=== PATIENT | female | born 1955 | race Caucasian/White ===

== ENCOUNTER 2017-02-11 14:59 | Day surgery (SDC) | payer MEDICARE, OTHER ==
[2017-02-11] MEDS ORDERED: NIVOLUMAB IVPB SCH ×4 (15:30)
[2017-02-11] MEDS ORDERED: [UNRECOGNIZED DRUG - OTHER] IVPB SCH ×4 (15:30)
== END 2017-02-11 17:10 | disposition home or self-care (01) ==
LOC: ONC/OP 14:59
PROVIDERS: ATTEND Internal Medicine Medical Oncology
DX: Z51.11 Encounter for antineoplastic chemotherapy (principal); C34.11 Malignant neoplasm of upper lobe, right bronchus or lung; M19.90 Unspecified osteoarthritis, unspecified site; Z90.49 Acquired absence of other specified parts of digestive tract; Z90.710 Acquired absence of both cervix and uterus; Z88.8 Allergy status to other drugs, medicaments and biological substances; Z79.82 Long term (current) use of aspirin
CPT/HCPCS: 96413; J7050; J9299

== ENCOUNTER 2017-02-25 11:31 | Day surgery (SDC) | payer MEDICARE, OTHER ==
[2017-02-25] MEDS ORDERED: NIVOLUMAB IVPB SCH ×4 (11:45)
[2017-02-25] MEDS ORDERED: [UNRECOGNIZED DRUG - OTHER] IVPB SCH ×4 (11:45)
[2017-02-25 12:03] VITALS: BP 113/70; TEMP 98.1
[2017-02-25] MEDS ORDERED: Sodium Chloride 0.9% 20 ML ONE (14:21)
== END 2017-02-25 16:08 | disposition home or self-care (01) ==
LOC: ONC/OP 11:31
PROVIDERS: ATTEND Internal Medicine Medical Oncology
DX: Z51.11 Encounter for antineoplastic chemotherapy (principal); C34.11 Malignant neoplasm of upper lobe, right bronchus or lung; M19.90 Unspecified osteoarthritis, unspecified site; Z79.899 Other long term (current) drug therapy; Z79.52 Long term (current) use of systemic steroids; Z88.8 Allergy status to other drugs, medicaments and biological substances; Z95.828 Presence of other vascular implants and grafts; Z90.710 Acquired absence of both cervix and uterus; Z90.49 Acquired absence of other specified parts of digestive tract; Z90.722 Acquired absence of ovaries, bilateral; Z90.79 Acquired absence of other genital organ(s); Z98.890 Other specified postprocedural states; Z87.891 Personal history of nicotine dependence; Z92.3 Personal history of irradiation; Z87.42 Personal history of other diseases of the female genital tract
CPT/HCPCS: 96413; A4216; J7050; J9299

== ENCOUNTER 2017-03-11 10:58 | Day surgery (SDC) | payer MEDICARE, OTHER ==
[2017-03-11] MEDS ORDERED: Sodium Chloride 0.9% 20 ML ONE (11:16)
[2017-03-11] MEDS ORDERED: [UNRECOGNIZED DRUG - OTHER] IVPB SCH ×4 (11:30)
[2017-03-11] MEDS ORDERED: NIVOLUMAB IVPB SCH ×4 (11:30)
[2017-03-11 11:50] VITALS: BP 129/73; TEMP 98.4
== END 2017-03-11 15:04 | disposition home or self-care (01) ==
LOC: ONC/OP 10:58
PROVIDERS: ATTEND Internal Medicine Medical Oncology
DX: Z51.11 Encounter for antineoplastic chemotherapy (principal); C34.11 Malignant neoplasm of upper lobe, right bronchus or lung; M19.90 Unspecified osteoarthritis, unspecified site; Z79.52 Long term (current) use of systemic steroids; Z79.899 Other long term (current) drug therapy; Z88.8 Allergy status to other drugs, medicaments and biological substances; Z90.49 Acquired absence of other specified parts of digestive tract; Z90.710 Acquired absence of both cervix and uterus; Z98.890 Other specified postprocedural states; Z92.3 Personal history of irradiation; Z87.891 Personal history of nicotine dependence
CPT/HCPCS: 36415; 80053; 82248; 82378; 83615; 84100; 84436; 84443; 84550; 96413; A4216; J7050; J9299

== ENCOUNTER 2017-03-25 13:46 | Day surgery (SDC) | payer MEDICARE, OTHER ==
[2017-03-25] MEDS ORDERED: Nivolumab 200 MG, Nivolumab 40 MG, Admixture Fee 1 EACH in Sodium Chloride 0.9% 250 ML ... IVPB SCH (14:00)
[2017-03-25 14:47] VITALS: BP 128/71; TEMP 98.2
== END 2017-03-25 16:18 | disposition home or self-care (01) ==
LOC: ONC/OP 13:46
PROVIDERS: ATTEND Internal Medicine Medical Oncology
DX: Z51.11 Encounter for antineoplastic chemotherapy (principal); C34.11 Malignant neoplasm of upper lobe, right bronchus or lung; M19.90 Unspecified osteoarthritis, unspecified site; Z79.52 Long term (current) use of systemic steroids; Z79.899 Other long term (current) drug therapy; Z88.8 Allergy status to other drugs, medicaments and biological substances; Z90.49 Acquired absence of other specified parts of digestive tract; Z90.710 Acquired absence of both cervix and uterus; Z98.890 Other specified postprocedural states; Z87.891 Personal history of nicotine dependence; Z92.3 Personal history of irradiation
CPT/HCPCS: 96413; J7050; J9299

== ENCOUNTER → 2017-04-08 | Day surgery (SDC) | payer MEDICARE, OTHER ==
[~2017-04-08] MED LIST: Nivolumab 200 MG, Nivolumab 40 MG, Admixture Fee 1 EACH in Sodium Chloride 0.9% 250 ML ... IVPB SCH; Sodium Chloride 0.9% 20 ML ONE
[2017-04-08 11:45] VITALS: BP 122/69; TEMP 97.8
== END ==
LOC: ONC/OP 10:54
PROVIDERS: ATTEND Internal Medicine Medical Oncology
DX: Z51.11 Encounter for antineoplastic chemotherapy (principal); C34.11 Malignant neoplasm of upper lobe, right bronchus or lung; M19.90 Unspecified osteoarthritis, unspecified site; Z79.52 Long term (current) use of systemic steroids; Z79.899 Other long term (current) drug therapy; Z88.8 Allergy status to other drugs, medicaments and biological substances; Z90.49 Acquired absence of other specified parts of digestive tract; Z90.710 Acquired absence of both cervix and uterus; Z98.890 Other specified postprocedural states; Z87.891 Personal history of nicotine dependence; Z92.3 Personal history of irradiation
CPT/HCPCS: 96413; A4216; J7050; J9299

== ENCOUNTER 2017-04-15 09:03 | Outpatient (CLI) | payer MEDICARE, OTHER ==
[2017-04-15] MEDS ORDERED: Gadobenate Dimeglumine 529 MG/1 ML (20ML VIAL) ONE (09:44)
--- NOTE | 2017-04-15 10:26 | MRI ---
PRE AND POST CONTRAST ENHANCED MRI BRAIN: Date: 04-15-17 Comparison: 12-18-16 FINDINGS: Images demonstrate an interval left parietal craniotomy. There has been surgical resection of the lef t parietal lesion. Some post-surgical encephalomalacic changes seen in the left parietal region. Ther e is decreased vasogenic edema surrounding the enhancing intraaxial mass. Some residual enhancement i s seen. This may represent residual tumor versus post-surgical changes. Correlate with surgical rajan ns. No other newly developed masses or lesions seen. IMPRESSION: Post-surgical changes in the left parietal cortex with residual enhancement along the margins of the cervical bed. Residual malignancy in this region cannot be excluded. POS: [facility]
== END 2017-04-15 09:04 | disposition home or self-care (01) ==
LOC: MRI 09:03
PROVIDERS: ATTEND Radiology Radiation Oncology
DX: C79.31 Secondary malignant neoplasm of brain (principal); Z98.890 Other specified postprocedural states
CPT/HCPCS: 70553; A9579

== ENCOUNTER 2017-04-22 12:00 | Day surgery (SDC) | payer MEDICARE, OTHER ==
[2017-04-22] MEDS ORDERED: NIVOLUMAB IVPB SCH (12:15)
[2017-04-22] MEDS ORDERED: SODIUM CHLORIDE 0.9% IVPB SCH (12:15)
[2017-04-22] MEDS ORDERED: Sodium Chloride 0.9% 20 ML ONE (12:17)
[2017-04-22 12:58] VITALS: BP 119/69; TEMP 97.5
--- NOTE | 2017-04-22 13:26 | RAD ---
PA AND LATERAL CHEST: Indication: History of malignant neoplasm of the lung with nausea and vomiting. Comparison: 05-17-15 FINDINGS: The cavitary changes of the right upper lobe with surrounding area of density is similar appearing. T he shifting of the mediastinum and trachea to the right from midline is stable. Scarring within the r ight lower lobe is similar. Left lung remains clear. Osseous structures appear unchanged. IMPRESSION: 1. Persistent chronic lung changes with cavitation and bronchiectasis involving the right upper lobe. 2. Stable scarring within the right lower lobe. No appreciable interval change is demonstrated. POS: [facility]
== END 2017-04-22 16:28 | disposition home or self-care (01) ==
LOC: ONC/OP 12:00
PROVIDERS: ATTEND Internal Medicine Medical Oncology
DX: Z51.11 Encounter for antineoplastic chemotherapy (principal); C34.11 Malignant neoplasm of upper lobe, right bronchus or lung; M19.90 Unspecified osteoarthritis, unspecified site; Z88.8 Allergy status to other drugs, medicaments and biological substances; Z90.49 Acquired absence of other specified parts of digestive tract; Z90.710 Acquired absence of both cervix and uterus; Z98.890 Other specified postprocedural states; Z87.891 Personal history of nicotine dependence
CPT/HCPCS: 71020; 96413; A4216; J1642; J7050; J9299

== ENCOUNTER 2017-05-06 11:00 | Day surgery (SDC) | payer MEDICARE, OTHER ==
[2017-05-06] MEDS ORDERED: Sodium Chloride 0.9% 20 ML ONE (11:19)
[2017-05-06] MEDS ORDERED: NIVOLUMAB IVPB SCH (11:45)
[2017-05-06] MEDS ORDERED: SODIUM CHLORIDE 0.9% IVPB SCH (11:45)
[2017-05-06 12:52] VITALS: BP 126/67; TEMP 98.3
== END 2017-05-06 14:17 | disposition home or self-care (01) ==
LOC: ONC/OP 11:00
PROVIDERS: ATTEND Internal Medicine Medical Oncology
DX: Z51.11 Encounter for antineoplastic chemotherapy (principal); C34.11 Malignant neoplasm of upper lobe, right bronchus or lung; M19.90 Unspecified osteoarthritis, unspecified site; Z92.3 Personal history of irradiation; Z87.891 Personal history of nicotine dependence; Z79.899 Other long term (current) drug therapy; Z88.8 Allergy status to other drugs, medicaments and biological substances; Z90.49 Acquired absence of other specified parts of digestive tract; Z90.710 Acquired absence of both cervix and uterus; Z98.890 Other specified postprocedural states
CPT/HCPCS: 96413; A4216; J7050; J9299

== ENCOUNTER 2017-05-20 11:22 | Day surgery (SDC) | payer MEDICARE, OTHER ==
[2017-05-20] MEDS ORDERED: Sodium Chloride 0.9% 20 ML ONE (11:38)
[2017-05-20] MEDS ORDERED: NIVOLUMAB IVPB SCH (11:45)
[2017-05-20] MEDS ORDERED: SODIUM CHLORIDE 0.9% IVPB SCH (11:45)
[2017-05-20 11:52] VITALS: BP 120/62; TEMP 98.4
== END 2017-05-20 13:40 | disposition home or self-care (01) ==
LOC: ONC/OP 11:22
PROVIDERS: ATTEND Internal Medicine Medical Oncology
DX: Z51.11 Encounter for antineoplastic chemotherapy (principal); C34.11 Malignant neoplasm of upper lobe, right bronchus or lung; M19.90 Unspecified osteoarthritis, unspecified site; Z88.8 Allergy status to other drugs, medicaments and biological substances; Z79.52 Long term (current) use of systemic steroids; Z79.899 Other long term (current) drug therapy; Z90.49 Acquired absence of other specified parts of digestive tract; Z98.890 Other specified postprocedural states; Z87.891 Personal history of nicotine dependence; Z92.3 Personal history of irradiation
CPT/HCPCS: 96413; A4216; J7050; J9299

== ENCOUNTER 2017-06-03 11:10 | Day surgery (SDC) | payer MEDICARE, OTHER ==
[2017-06-03] MEDS ORDERED: NIVOLUMAB IVPB SCH (11:30)
[2017-06-03] MEDS ORDERED: SODIUM CHLORIDE 0.9% IVPB SCH (11:30)
== END 2017-06-03 14:06 | disposition home or self-care (01) ==
LOC: ONC/OP 11:10
PROVIDERS: ATTEND Internal Medicine Medical Oncology
DX: Z51.11 Encounter for antineoplastic chemotherapy (principal); C34.11 Malignant neoplasm of upper lobe, right bronchus or lung; R11.2 Nausea with vomiting, unspecified; M19.90 Unspecified osteoarthritis, unspecified site; Z87.891 Personal history of nicotine dependence; Z79.899 Other long term (current) drug therapy; Z80.3 Family history of malignant neoplasm of breast; Z88.8 Allergy status to other drugs, medicaments and biological substances; Z90.49 Acquired absence of other specified parts of digestive tract; Z90.711 Acquired absence of uterus with remaining cervical stump; Z98.890 Other specified postprocedural states
CPT/HCPCS: 96413; J7050; J9299

== ENCOUNTER 2017-06-17 11:56 | Day surgery (SDC) | payer MEDICARE, OTHER ==
[2017-06-17] MEDS ORDERED: Nivolumab 200 MG, Nivolumab 40 MG, Admixture Fee 1 EACH in Sodium Chloride 0.9% 250 ML ... IVPB SCH (12:30)
[2017-06-17] MEDS ORDERED: Sodium Chloride 0.9% 20 ML ONE (12:34)
[2017-06-17 13:27] LABS: Bilirubin Negative (Negative); Blood, Urine Negative (Negative); Clarity CLEAR (Clear); Glucose, Urine (Dipstick) Negative (Negative); Leukocyte Trace (Negative); Nitrite Negative (Negative); Protein, Urine (Dipstick) Negative (Neg-Trace); Specific Gravity, Urine 1.009 (1.002-1.036); Urobilinogen 0.2 mg/dL (0.2-1.0)
[2017-06-17 13:29] LABS: Bacteria/HPF None Seen HPF (None Seen); Hyaline Casts/LPF 0-3 HYALINE CAST LPF (0-3 Hyaline); Pathc Cast-AUWi Flag 0.27 (0-2.49); RBC/HPF 0-3 HPF (0-3); Squamous Epithelial 0-3 HPF (0-3); WBC/HPF 0-3 HPF (0-3)
[2017-06-17 15:52] VITALS: BP 133/76; TEMP 98.4
== END 2017-06-17 16:09 | disposition home or self-care (01) ==
LOC: ONC/OP 11:56
PROVIDERS: ATTEND Internal Medicine Medical Oncology
DX: Z51.11 Encounter for antineoplastic chemotherapy (principal); C34.11 Malignant neoplasm of upper lobe, right bronchus or lung; M19.90 Unspecified osteoarthritis, unspecified site; Z88.8 Allergy status to other drugs, medicaments and biological substances
CPT/HCPCS: 81001; 87086; 96413; 99211; A4216; G0463; J7050; J9299

== ENCOUNTER 2017-07-01 11:36 | Day surgery (SDC) | payer MEDICARE, OTHER ==
[2017-07-01] MEDS ORDERED: Sodium Chloride 0.9% 20 ML ONE (11:45)
[2017-07-01] MEDS ORDERED: Nivolumab 200 MG, Nivolumab 40 MG, Admixture Fee 1 EACH in Sodium Chloride 0.9% 250 ML ... IVPB SCH (12:00)
== END 2017-07-01 14:34 | disposition home or self-care (01) ==
LOC: ONC/OP 11:36
PROVIDERS: ATTEND Internal Medicine Medical Oncology
DX: Z51.11 Encounter for antineoplastic chemotherapy (principal); C34.11 Malignant neoplasm of upper lobe, right bronchus or lung; M19.90 Unspecified osteoarthritis, unspecified site; Z79.52 Long term (current) use of systemic steroids; Z79.899 Other long term (current) drug therapy; Z88.8 Allergy status to other drugs, medicaments and biological substances; Z92.3 Personal history of irradiation; Z90.49 Acquired absence of other specified parts of digestive tract; Z90.710 Acquired absence of both cervix and uterus; Z98.890 Other specified postprocedural states; Z87.891 Personal history of nicotine dependence
CPT/HCPCS: 96413; A4216; J7050; J9299

== ENCOUNTER 2017-07-15 13:31 | Day surgery (SDC) | payer MEDICARE ==
[2017-07-15] MEDS ORDERED: Sodium Chloride 0.9% 20 ML ONE (13:40)
[2017-07-15] MEDS ORDERED: SODIUM CHLORIDE IVPB SCH (13:45)
[2017-07-15] MEDS ORDERED: NIVOLUMAB IVPB SCH (13:45)
[2017-07-15] MEDS ORDERED: ADMIXTURE FEE IVPB SCH (13:45)
[2017-07-15 14:01] VITALS: BP 114/64; TEMP 98.2
== END 2017-07-15 15:55 | disposition home or self-care (01) ==
LOC: ONC/OP 13:31
PROVIDERS: ATTEND Internal Medicine Medical Oncology
DX: Z51.11 Encounter for antineoplastic chemotherapy (principal); C34.11 Malignant neoplasm of upper lobe, right bronchus or lung; M19.90 Unspecified osteoarthritis, unspecified site; Z92.21 Personal history of antineoplastic chemotherapy; Z92.3 Personal history of irradiation; Z87.891 Personal history of nicotine dependence; Z79.899 Other long term (current) drug therapy; Z88.8 Allergy status to other drugs, medicaments and biological substances
CPT/HCPCS: 96413; A4216; C9299; J7050

== ENCOUNTER 2017-07-22 13:15 | Outpatient (CLI) | payer MEDICARE, OTHER ==
--- NOTE | 2017-07-22 15:04 | MRI ---
PRE AND POSTCONTRAST ENHANCED MRI OF BRAIN: Date: 07/22/17 COMPARISON: Previous pre and postcontrast enhanced MRI from 04/15/17. TECHNIQUE: Multiplanar, multisequence pre and postcontrast enhanced MRI of brain obtained. FINDINGS: Images demonstrate a left parietal craniotomy site again seen. Postsurgical changes seen in the left parietal lobe. There is an approximately 2.3 x 1.3 x 2.3 cm area of left parietal parenchymal enhancement. The exten t of parenchymal enhancement appears to be slightly more pronounced than on the previous comparison e xam, where previously there was more of a cystic component and less of a solid area of parenchymal en hancement. This may represent postsurgical changes versus increasing brain parenchymal neoplasm. As m entioned above, the cystic component has decreased, while the solid enhancing component has increased in this area. The area of enhancement extends all the way to the ependymal surface of the left later al ventricle posteriorly. The rest of the brain demonstrates no obvious evidence of masses or lesions. No evidence of hydroceph alus seen. IMPRESSION: Postsurgical changes versus increasing tumor enhancement in the left parietal region. Findings discussed with Dr. Reyes's nurse, Marce, at 1418 hours on 07/22/17. CODE CR. POS: [facility]
[2017-07-22] MEDS ORDERED: Gadobenate Dimeglumine 529 MG/1 ML (20ML VIAL) ONE (16:37)
== END 2017-07-22 13:16 | disposition home or self-care (01) ==
LOC: MRI 13:15
PROVIDERS: ATTEND Radiology Radiation Oncology
DX: C79.31 Secondary malignant neoplasm of brain (principal); C34.90 Malignant neoplasm of unspecified part of unspecified bronchus or lung
CPT/HCPCS: 70553; A9579

== ENCOUNTER 2017-07-29 11:16 | Day surgery (SDC) | payer MEDICARE, OTHER ==
[2017-07-29] MEDS ORDERED: NIVOLUMAB IVPB SCH (11:30)
[2017-07-29] MEDS ORDERED: SODIUM CHLORIDE IVPB SCH (11:30)
[2017-07-29] MEDS ORDERED: ADMIXTURE FEE IVPB SCH (11:30)
[2017-07-29 11:38] VITALS: BP 128/67; TEMP 98.5
[2017-07-29] MEDS ORDERED: Sodium Chloride 0.9% 30 ML ONE (11:39)
--- NOTE | 2017-07-29 13:28 | RAD ---
CHEST TWO VIEWS: HISTORY: Cough. Lung cancer. COMPARISON: 05/12/2017 CORRELATION: 01/08/2017 FINDINGS: Chronic changes in the right hemithorax with decreased right lung volume. Stable aeration and cavita tion in the right upper lobe. Stable retraction of the cardiomediastinal silhouette in a rightward d irection. Stable hyperinflation of the left lung. There is no pneumothorax. IMPRESSION: Stable postsurgical/posttreatment changes. No acute cardiopulmonary process. POS: [facility]
== END 2017-07-29 14:12 | disposition home or self-care (01) ==
LOC: ONC/OP 11:16
PROVIDERS: ATTEND Internal Medicine Medical Oncology
DX: Z51.11 Encounter for antineoplastic chemotherapy (principal); C34.11 Malignant neoplasm of upper lobe, right bronchus or lung; C78.01 Secondary malignant neoplasm of right lung; M19.90 Unspecified osteoarthritis, unspecified site; Z92.3 Personal history of irradiation; Z87.891 Personal history of nicotine dependence; Z79.899 Other long term (current) drug therapy; Z88.8 Allergy status to other drugs, medicaments and biological substances
CPT/HCPCS: 71046; 96413; A4216; J7050; J9299

== ENCOUNTER 2017-08-12 14:36 | Day surgery (SDC) | payer MEDICARE, OTHER ==
[2017-08-12] MEDS ORDERED: Sodium Chloride 0.9% 20 ML ONE (14:43)
[2017-08-12] MEDS ORDERED: SODIUM CHLORIDE IVPB SCH (14:45)
[2017-08-12] MEDS ORDERED: NIVOLUMAB IVPB SCH (14:45)
[2017-08-12] MEDS ORDERED: ADMIXTURE FEE IVPB SCH (14:45)
[2017-08-12 15:02] VITALS: BP 113/73; TEMP 98.5
== END 2017-08-12 16:13 | disposition home or self-care (01) ==
LOC: ONC/OP 14:36
PROVIDERS: ATTEND Internal Medicine Medical Oncology
DX: Z51.11 Encounter for antineoplastic chemotherapy (principal); C34.11 Malignant neoplasm of upper lobe, right bronchus or lung; M19.90 Unspecified osteoarthritis, unspecified site; Z79.52 Long term (current) use of systemic steroids; Z79.899 Other long term (current) drug therapy; Z88.8 Allergy status to other drugs, medicaments and biological substances; Z92.3 Personal history of irradiation; Z87.891 Personal history of nicotine dependence
CPT/HCPCS: 80053; 82248; 83615; 84100; 84443; 84550; 96413; A4216; J7050; J9299

== ENCOUNTER 2017-08-26 13:45 | Day surgery (SDC) | payer MEDICARE, OTHER ==
[2017-08-26] MEDS ORDERED: SODIUM CHLORIDE IVPB SCH (14:15)
[2017-08-26] MEDS ORDERED: NIVOLUMAB IVPB SCH (14:15)
[2017-08-26] MEDS ORDERED: ADMIXTURE FEE IVPB SCH (14:15)
== END 2017-08-26 16:32 | disposition home or self-care (01) ==
LOC: ONC/OP 13:45
PROVIDERS: ATTEND Internal Medicine Medical Oncology
DX: Z51.11 Encounter for antineoplastic chemotherapy (principal); C34.11 Malignant neoplasm of upper lobe, right bronchus or lung; M19.90 Unspecified osteoarthritis, unspecified site; Z79.52 Long term (current) use of systemic steroids; Z79.899 Other long term (current) drug therapy; Z88.8 Allergy status to other drugs, medicaments and biological substances; Z92.3 Personal history of irradiation; Z87.891 Personal history of nicotine dependence
CPT/HCPCS: 96413; J7050; J9299

== ENCOUNTER 2017-09-09 13:56 | Day surgery (SDC) | payer MEDICARE, OTHER ==
[2017-09-09] MEDS ORDERED: Sodium Chloride 0.9% 40 ML ONE (14:12)
[2017-09-09] MEDS ORDERED: ADMIXTURE FEE IVPB SCH (14:15)
[2017-09-09] MEDS ORDERED: SODIUM CHLORIDE IVPB SCH (14:15)
[2017-09-09] MEDS ORDERED: NIVOLUMAB IVPB SCH (14:15)
[2017-09-09 15:11] VITALS: BP 121/67; TEMP 98.2
== END 2017-09-09 16:27 | disposition home or self-care (01) ==
LOC: ONC/OP 13:56
PROVIDERS: ATTEND Internal Medicine Medical Oncology
DX: Z51.11 Encounter for antineoplastic chemotherapy (principal); C34.11 Malignant neoplasm of upper lobe, right bronchus or lung; M19.90 Unspecified osteoarthritis, unspecified site; Z79.52 Long term (current) use of systemic steroids; Z79.899 Other long term (current) drug therapy; Z88.8 Allergy status to other drugs, medicaments and biological substances; Z92.3 Personal history of irradiation; Z87.891 Personal history of nicotine dependence
CPT/HCPCS: 96413; A4216; J7050; J9299

== ENCOUNTER 2017-09-23 13:51 | Day surgery (SDC) | payer MEDICARE, OTHER ==
[2017-09-23] MEDS ORDERED: ADMIXTURE FEE IVPB SCH (14:15)
[2017-09-23] MEDS ORDERED: NIVOLUMAB IVPB SCH (14:15)
[2017-09-23] MEDS ORDERED: SODIUM CHLORIDE IVPB SCH (14:15)
--- NOTE | 2017-09-23 15:27 | RAD ---
TWO VIEW CHEST: History: Lung cancer. Shortness of breath. Comparison: 07-29-17, CT 01-08-17 FINDINGS: Post-operative changes of the right upper chest again noted with pleural thickening and resulting ple ural cavities which have been noted previously. The right upper lobe opacification and scarring appea rs stable. The scarring produces shift of the midline structures to the right and this is a stable fi nding. Left lung is clear and hyperexpanded and stable. Osseous structures unremarkable. IMPRESSION: Stable chest findings. POS: [facility]
== END 2017-09-23 16:22 | disposition home or self-care (01) ==
LOC: ONC/OP 13:51
PROVIDERS: ATTEND Internal Medicine Medical Oncology
DX: Z51.11 Encounter for antineoplastic chemotherapy (principal); C34.11 Malignant neoplasm of upper lobe, right bronchus or lung; R11.2 Nausea with vomiting, unspecified; Z79.899 Other long term (current) drug therapy
CPT/HCPCS: 71046; 80053; 82248; 83615; 84100; 84550; 96413; 99211; G0463; J7050; J9299

== ENCOUNTER 2017-10-07 14:11 | Day surgery (SDC) | payer MEDICARE ==
[2017-10-07] MEDS ORDERED: Sodium Chloride 0.9% 20 ML ONE (14:22)
[2017-10-07] MEDS ORDERED: Nivolumab 240 MG in Sodium Chloride 0.9% 250 ML 250 ML IVPB SCH (14:30)
[2017-10-07 15:35] VITALS: BP 145/74; TEMP 98.3
== END 2017-10-07 16:45 | disposition home or self-care (01) ==
LOC: ONC/OP 14:11
PROVIDERS: ATTEND Internal Medicine Medical Oncology
DX: Z51.11 Encounter for antineoplastic chemotherapy (principal); C34.11 Malignant neoplasm of upper lobe, right bronchus or lung; M19.90 Unspecified osteoarthritis, unspecified site; R11.2 Nausea with vomiting, unspecified; Z87.891 Personal history of nicotine dependence; Z79.82 Long term (current) use of aspirin; Z79.899 Other long term (current) drug therapy; Z85.841 Personal history of malignant neoplasm of brain
CPT/HCPCS: 36415; 84436; 84443; 96413; A4216; J7050; J9299

== ENCOUNTER 2017-10-20 09:40 | Outpatient (CLI) | payer MEDICARE ==
[2017-10-20] MEDS ORDERED: Gadobenate Dimeglumine 529 MG/1 ML (20ML VIAL) ONE (11:28)
--- NOTE | 2017-10-20 12:42 | MRI ---
BRAIN MRI WITH AND WITHOUT CONTRAST: Date: 10-20-17 Comparison: 07-22-17 History: Lung cancer. History of intracranial metastatic disease status post radiation and surgery. Technique: Multiplanar, multisequence MRI images were obtained of the brain with and without contrast . FINDINGS: The diffuse weighted imaging demonstrates no evidence for acute infarction. There is evidence of prior craniotomy in the posterior left frontoparietal region. The gradient echo imaging demonstrates a subtle area of mild blooming artifact along the superomedial margin of the pos t-operative cavity in this region, suggesting minimal residual blood products. No additional abnormality noted on the gradient echo imaging. There is no midline shift or mass effect. There is encephalomalacia in the area of prior surgery on the left with associated enlargement of the posterior horn of the left lateral ventricle, stable. There is adjacent increased T2 and FLAIR signa l within the deep and subcortical white matter extending into the periventricular white matter in thi s region, which appears unchanged when compared to the 07-22-17 examination. There is mucosal thickening involving the posterior ethmoid air cells on the left. On the post contrast imaging there is an area of rim enhancement along the superomedial margin of the post-operative cavity, which is the area of blooming artifact on gradient echo imaging which suggest ed residual hemorrhage/blood products. This area of rim enhancement measures 9 mm in transverse dimen adalberto and 12 mm in AP dimension, which has decreased from 10 x 13 mm on the 07-22-17 exam. Just above t his, there is an ill-defined area of enhancement within the subcortical white matter which measures u p to 1 cm in transverse dimension. This area has decreased significantly when compared to the prior e xam at which time it measures 2.3 x 1.2 cm. On prior coronal imaging, the area of enhancement along t he medial margin of the post-operative cavity measured 2.3 cm, now measuring 1.6 cm. When compared to the 04-15-17 MRI the area of rim enhancement associated with residual blood products and the enhancem ent superior to this is increased but it is certainly improved since 07-22-17. The post contrast imaging does not demonstrate additional areas of abnormal enhancement within the br ain parenchyma. Arterial flow at the axial level of the skull base appear grossly unremarkable on the T2 weighted ruel ging. IMPRESSION: 1. Post-operative changes in the left posterior frontoparietal region as described above. There is en hancement along the medial and anterior/superior margin of this post-operative cavity. This enhanceme nt has increased since 04-15-17 but has improved when compared to 07-22-17. Exact etiology is uncertain . This suggests improving residual tumor or improving radiation necrosis, depending upon patient's pr ior treatment history, specifically any potential treatment since the 07-22-17 examination. Continued follow up is advised. POS: [facility]
== END 2017-10-20 09:41 | disposition home or self-care (01) ==
LOC: MRI 09:40
PROVIDERS: ATTEND Radiology Radiation Oncology
DX: C79.31 Secondary malignant neoplasm of brain (principal); C34.90 Malignant neoplasm of unspecified part of unspecified bronchus or lung; Z92.3 Personal history of irradiation; Z98.890 Other specified postprocedural states
CPT/HCPCS: 70553; A9579

== ENCOUNTER 2017-10-21 14:23 | Day surgery (SDC) | payer MEDICARE ==
[2017-10-21] MEDS ORDERED: Sodium Chloride 0.9% 20 ML ONE (14:42)
[2017-10-21] MEDS ORDERED: Nivolumab 240 MG in Sodium Chloride 0.9% 250 ML 250 ML IVPB SCH (14:45)
== END 2017-10-21 17:33 | disposition home or self-care (01) ==
LOC: ONC/OP 14:23
PROVIDERS: ATTEND Internal Medicine Medical Oncology
DX: Z51.11 Encounter for antineoplastic chemotherapy (principal); C34.11 Malignant neoplasm of upper lobe, right bronchus or lung; R11.2 Nausea with vomiting, unspecified; M19.90 Unspecified osteoarthritis, unspecified site; Z87.891 Personal history of nicotine dependence
CPT/HCPCS: 96413; A4216; J7050; J9299

== ENCOUNTER 2017-11-04 12:41 | Day surgery (SDC) | payer MEDICARE ==
[2017-11-04] MEDS ORDERED: Sodium Chloride 0.9% 30 ML ONE (12:57)
[2017-11-04] MEDS ORDERED: Nivolumab 240 MG in Sodium Chloride 0.9% 250 ML 250 ML IVPB SCH (13:00)
[2017-11-04 14:18] VITALS: BP 145/69; TEMP 97.8
== END 2017-11-04 15:04 | disposition home or self-care (01) ==
LOC: ONC/OP 12:41
PROVIDERS: ATTEND Internal Medicine Medical Oncology
DX: Z51.11 Encounter for antineoplastic chemotherapy (principal); C34.11 Malignant neoplasm of upper lobe, right bronchus or lung; R11.2 Nausea with vomiting, unspecified; M19.90 Unspecified osteoarthritis, unspecified site; Z87.891 Personal history of nicotine dependence; Z88.8 Allergy status to other drugs, medicaments and biological substances; Z79.82 Long term (current) use of aspirin; Z79.899 Other long term (current) drug therapy
CPT/HCPCS: 96413; A4216; J7050; J9299

== ENCOUNTER 2017-11-18 10:38 | Day surgery (SDC) | payer MEDICARE ==
[2017-11-18] MEDS ORDERED: Nivolumab 240 MG in Sodium Chloride 0.9% 250 ML 250 ML IVPB SCH (11:00)
[2017-11-18 12:02] VITALS: BP 137/68; TEMP 98.3
== END 2017-11-18 13:36 | disposition home or self-care (01) ==
LOC: ONC/OP 10:38
PROVIDERS: ATTEND Internal Medicine Medical Oncology
DX: Z51.11 Encounter for antineoplastic chemotherapy (principal); C34.11 Malignant neoplasm of upper lobe, right bronchus or lung; R11.2 Nausea with vomiting, unspecified; M19.90 Unspecified osteoarthritis, unspecified site; Z87.891 Personal history of nicotine dependence; Z88.8 Allergy status to other drugs, medicaments and biological substances; Z79.82 Long term (current) use of aspirin; Z79.899 Other long term (current) drug therapy
CPT/HCPCS: 96413; J7050; J9299

== ENCOUNTER 2017-12-02 14:17 | Day surgery (SDC) | payer MEDICARE ==
[2017-12-02] MEDS ORDERED: Nivolumab 240 MG in Sodium Chloride 0.9% 250 ML 250 ML IVPB SCH (14:30)
[2017-12-02 17:42] VITALS: BP 158/76; TEMP 98
== END 2017-12-02 16:45 | disposition home or self-care (01) ==
LOC: ONC/OP 14:17
PROVIDERS: ATTEND Internal Medicine Medical Oncology
DX: Z51.11 Encounter for antineoplastic chemotherapy (principal); C34.11 Malignant neoplasm of upper lobe, right bronchus or lung; C79.31 Secondary malignant neoplasm of brain; M19.90 Unspecified osteoarthritis, unspecified site; R11.2 Nausea with vomiting, unspecified; R06.02 Shortness of breath; Z88.8 Allergy status to other drugs, medicaments and biological substances; Z87.891 Personal history of nicotine dependence; Z79.82 Long term (current) use of aspirin; Z79.899 Other long term (current) drug therapy
CPT/HCPCS: 36415; 82378; 96413; J7050; J9299

== ENCOUNTER 2017-12-16 09:29 | Day surgery (SDC) | payer MEDICARE ==
[2017-12-16] MEDS ORDERED: Nivolumab 240 MG in Sodium Chloride 0.9% 250 ML 250 ML IVPB SCH (09:45)
[2017-12-16] MEDS ORDERED: Sodium Chloride 0.9% 20 ML ONE (09:48)
[2017-12-16 09:55] VITALS: BP 121/72; TEMP 98.4
== END 2017-12-16 12:10 | disposition home or self-care (01) ==
LOC: ONC/OP 09:29
PROVIDERS: ATTEND Internal Medicine Medical Oncology
DX: Z51.11 Encounter for antineoplastic chemotherapy (principal); C34.11 Malignant neoplasm of upper lobe, right bronchus or lung; C79.31 Secondary malignant neoplasm of brain; M19.90 Unspecified osteoarthritis, unspecified site; R11.2 Nausea with vomiting, unspecified; Z87.891 Personal history of nicotine dependence; Z88.8 Allergy status to other drugs, medicaments and biological substances; Z90.710 Acquired absence of both cervix and uterus; Z79.82 Long term (current) use of aspirin; Z79.899 Other long term (current) drug therapy
CPT/HCPCS: 96413; J7050; J9299

== ENCOUNTER 2017-12-30 13:46 | Day surgery (SDC) | payer MEDICARE ==
[2017-12-30] MEDS ORDERED: Nivolumab 240 MG in Sodium Chloride 0.9% 250 ML 250 ML IVPB SCH (14:00)
== END 2017-12-30 16:05 | disposition home or self-care (01) ==
LOC: ONC/OP 13:46
PROVIDERS: ATTEND Internal Medicine Medical Oncology
DX: Z51.11 Encounter for antineoplastic chemotherapy (principal); C34.11 Malignant neoplasm of upper lobe, right bronchus or lung; R11.2 Nausea with vomiting, unspecified; Z88.8 Allergy status to other drugs, medicaments and biological substances; Z87.891 Personal history of nicotine dependence; Z79.899 Other long term (current) drug therapy
CPT/HCPCS: 36415; 84436; 84443; 96413; J7050; J9299

== ENCOUNTER 2018-01-13 14:11 | Day surgery (SDC) | payer MEDICARE ==
[2018-01-13] MEDS ORDERED: Sodium Chloride 0.9% 20 ML ONE (14:17)
[2018-01-13] MEDS ORDERED: Nivolumab 240 MG in Sodium Chloride 0.9% 250 ML 250 ML IVPB SCH (14:30)
== END 2018-01-13 16:04 | disposition home or self-care (01) ==
LOC: ONC/OP 14:11
PROVIDERS: ATTEND Internal Medicine Medical Oncology
DX: Z51.11 Encounter for antineoplastic chemotherapy (principal); C34.11 Malignant neoplasm of upper lobe, right bronchus or lung; Z87.891 Personal history of nicotine dependence; Z79.02 Long term (current) use of antithrombotics/antiplatelets; Z79.899 Other long term (current) drug therapy
CPT/HCPCS: 96413; A4216; J7050; J9299

== ENCOUNTER 2018-01-27 14:07 | Day surgery (SDC) | payer MEDICARE ==
[2018-01-27] MEDS ORDERED: Sodium Chloride 0.9% 20 ML ONE (14:23)
[2018-01-27] MEDS ORDERED: Nivolumab 240 MG in Sodium Chloride 0.9% 250 ML 250 ML IVPB SCH (14:30)
[2018-01-27 16:26] VITALS: BP 128/64; TEMP 98.2
== END 2018-01-27 16:27 | disposition home or self-care (01) ==
LOC: ONC/OP 14:07
PROVIDERS: ATTEND Internal Medicine Medical Oncology
DX: Z51.11 Encounter for antineoplastic chemotherapy (principal); C34.11 Malignant neoplasm of upper lobe, right bronchus or lung; Z88.8 Allergy status to other drugs, medicaments and biological substances; Z87.891 Personal history of nicotine dependence; Z79.82 Long term (current) use of aspirin; Z79.899 Other long term (current) drug therapy
CPT/HCPCS: 36415; 80053; 82248; 82378; 82728; 83615; 84100; 84550; 96413; A4216; J7050; J9299

== ENCOUNTER 2018-02-10 14:07 | Day surgery (SDC) | payer MEDICARE ==
[2018-02-10 14:25] VITALS: BP 119/62; TEMP 98.1
[2018-02-10] MEDS ORDERED: Nivolumab 240 MG in Sodium Chloride 0.9% 250 ML 250 ML IVPB SCH (15:00)
== END 2018-02-10 16:32 | disposition home or self-care (01) ==
LOC: ONC/OP 14:07
PROVIDERS: ATTEND Internal Medicine Medical Oncology
DX: Z51.11 Encounter for antineoplastic chemotherapy (principal); C34.11 Malignant neoplasm of upper lobe, right bronchus or lung; Z87.891 Personal history of nicotine dependence; Z88.8 Allergy status to other drugs, medicaments and biological substances; Z79.899 Other long term (current) drug therapy
CPT/HCPCS: 96413; J7050; J9299

== ENCOUNTER 2018-02-24 09:37 | Outpatient (CLI) | payer MEDICARE ==
--- NOTE | 2018-02-24 13:00 | MRI ---
MRI BRAIN WITH AND WITHOUT CONTRAST: HISTORY: Brain neoplasm. Lung cancer with brain metastases. Status post radiation and surgery. COMPARISON: 10/20/2017 TECHNIQUE: A brain MRI is performed with and without intravenous Gadolinium administration. Multisequential, mu ltiplanar imaging is performed. FINDINGS: Stable postoperative changes with a left parietal craniotomy. There are malacic and gliotic changes involving the left parietal and temporal lobes. There is ex vacuo dilatation of the occipital horn a nd the posterior aspect of the left lateral ventricle. There is hemosiderin deposition at the operat scottie site due to post surgical hemorrhage. There is a stable T2 hyperintense lesion with enhancing se ptation, likely in the extraaxial space, measuring 3.1 x 1.5 cm. Postoperative fluid collection is s uspected. No significant mass effect upon the underlying cerebrum. There are scattered white matter hyperintensities on the axial T2 and FLAIR sequences due to chronic small vessel ischemic change. Central arterial flow voids are maintained. Absent restricted diffusi on. There is subtle intrinsic T1 hyperintensity in the region of surgery. On the post contrast images, t here is evidence of enhancement, measuring 1 x 0.9 cm. There is enhancement along the aforementioned T2 hyperintense lesion, as well as the dura underlying the surgical defect. The more focal area of enhancement has not changed in size, previously measuring 1.2 x 0.9 cm. Enhancement may represent po st treatment change. Residual tumor cannot be completely excluded. There are no new areas parenchym al enhancement. Stable enhancement along the left craniotomy defect. IMPRESSION: Redemonstration of postoperative changes. Enhancement is essentially unchanged and is presumed to re present post treatment change. Residual tumor cannot be completely excluded. No new areas of abnorm al parenchymal enhancement. POS: [facility]
[2018-02-24] MEDS ORDERED: Gadobenate Dimeglumine 529 MG/1 ML (20ML VIAL) ONE (16:10)
== END 2018-02-24 09:38 | disposition home or self-care (01) ==
LOC: BICMRI 09:37
PROVIDERS: ATTEND Radiology Radiation Oncology
DX: C79.31 Secondary malignant neoplasm of brain (principal); C34.90 Malignant neoplasm of unspecified part of unspecified bronchus or lung; Z98.890 Other specified postprocedural states; Z92.3 Personal history of irradiation
CPT/HCPCS: 70553

== ENCOUNTER 2018-02-24 13:55 | Day surgery (SDC) | payer MEDICARE ==
[2018-02-24] MEDS ORDERED: Nivolumab 240 MG in Sodium Chloride 0.9% 250 ML 250 ML IVPB SCH (14:15)
== END 2018-02-24 16:23 | disposition home or self-care (01) ==
LOC: ONC/OP 13:55
PROVIDERS: ATTEND Internal Medicine Medical Oncology
DX: Z51.11 Encounter for antineoplastic chemotherapy (principal); C34.11 Malignant neoplasm of upper lobe, right bronchus or lung; R11.2 Nausea with vomiting, unspecified; M19.90 Unspecified osteoarthritis, unspecified site; Z88.8 Allergy status to other drugs, medicaments and biological substances; Z87.891 Personal history of nicotine dependence; C79.31 Secondary malignant neoplasm of brain
CPT/HCPCS: 70553; 96413; A9579; J7050; J9299

== ENCOUNTER → 2018-03-10 | Day surgery (SDC) | payer MEDICARE ==
[~2018-03-10] MED LIST changes: -Nivolumab 200 MG, Nivolumab 40 MG, Admixture Fee 1 EACH in Sodium Chloride 0.9% 250 ML ... IVPB SCH; +Nivolumab 240 MG in Sodium Chloride 0.9% 250 ML 250 ML IVPB SCH
[2018-03-10 15:14] VITALS: BP 103/68; TEMP 98.5
== END ==
LOC: ONC/OP 14:17
PROVIDERS: ATTEND Internal Medicine Medical Oncology
DX: Z51.11 Encounter for antineoplastic chemotherapy (principal); C34.11 Malignant neoplasm of upper lobe, right bronchus or lung; R11.2 Nausea with vomiting, unspecified; M19.90 Unspecified osteoarthritis, unspecified site; Z88.8 Allergy status to other drugs, medicaments and biological substances; Z87.891 Personal history of nicotine dependence
CPT/HCPCS: 96413; J7050; J9299

== ENCOUNTER 2018-03-24 15:23 | Day surgery (SDC) | payer MEDICARE ==
[2018-03-24] MEDS ORDERED: Nivolumab 240 MG in Sodium Chloride 0.9% 250 ML 250 ML IVPB SCH (16:00)
[2018-03-24 16:12] VITALS: BP 132/61; TEMP 98.3
== END 2018-03-24 17:49 | disposition home or self-care (01) ==
LOC: ONC/OP 15:23
PROVIDERS: ATTEND Internal Medicine Medical Oncology
DX: Z51.11 Encounter for antineoplastic chemotherapy (principal); C34.11 Malignant neoplasm of upper lobe, right bronchus or lung; Z88.8 Allergy status to other drugs, medicaments and biological substances; Z87.891 Personal history of nicotine dependence; Z79.899 Other long term (current) drug therapy; N20.1 Calculus of ureter; N20.0 Calculus of kidney; R35.0 Frequency of micturition
CPT/HCPCS: 36415; 80053; 81001; 82248; 82378; 83615; 84100; 84436; 84443; 84550; 87077; 87086; 87186; 96413; J7050; J9299

== ENCOUNTER 2018-04-07 13:30 | Day surgery (SDC) | payer MEDICARE ==
[2018-04-07] MEDS ORDERED: Nivolumab 240 MG in Sodium Chloride 0.9% 250 ML 250 ML IVPB SCH (14:00)
[2018-04-07] MEDS ORDERED: Sodium Chloride 0.9% 20 ML ONE (14:14)
[2018-04-07 15:15] VITALS: BP 130/75; TEMP 99
== END 2018-04-07 17:07 | disposition home or self-care (01) ==
LOC: ONC/OP 13:30
PROVIDERS: ATTEND Internal Medicine Medical Oncology
DX: Z51.11 Encounter for antineoplastic chemotherapy (principal); C34.11 Malignant neoplasm of upper lobe, right bronchus or lung; Z88.8 Allergy status to other drugs, medicaments and biological substances; Z87.891 Personal history of nicotine dependence; Z79.899 Other long term (current) drug therapy
CPT/HCPCS: 96413; J7050; J9299

== ENCOUNTER 2018-04-21 14:17 | Day surgery (SDC) | payer MEDICARE ==
[2018-04-21] MEDS ORDERED: Nivolumab 240 MG in Sodium Chloride 0.9% 250 ML 250 ML IVPB SCH (14:30)
[2018-04-21 14:34] VITALS: BP 164/78; TEMP 98.1
== END 2018-04-21 16:13 | disposition home or self-care (01) ==
LOC: ONC/OP 14:17
PROVIDERS: ATTEND Internal Medicine Medical Oncology
DX: Z51.11 Encounter for antineoplastic chemotherapy (principal); C34.11 Malignant neoplasm of upper lobe, right bronchus or lung; M19.90 Unspecified osteoarthritis, unspecified site; Z87.891 Personal history of nicotine dependence; Z79.899 Other long term (current) drug therapy; Z88.8 Allergy status to other drugs, medicaments and biological substances
CPT/HCPCS: 96413; J7050; J9299

== ENCOUNTER 2018-05-05 15:57 | Day surgery (SDC) | payer MEDICARE ==
[2018-05-05] MEDS ORDERED: Nivolumab 240 MG in Sodium Chloride 0.9% 250 ML 250 ML IVPB SCH (16:30)
[2018-05-05 16:54] VITALS: BP 182/92; TEMP 97.8
== END 2018-05-05 17:51 | disposition home or self-care (01) ==
LOC: ONC/OP 15:57
PROVIDERS: ATTEND Internal Medicine Medical Oncology
DX: Z51.11 Encounter for antineoplastic chemotherapy (principal); C34.11 Malignant neoplasm of upper lobe, right bronchus or lung; M19.90 Unspecified osteoarthritis, unspecified site; Z79.899 Other long term (current) drug therapy; Z87.891 Personal history of nicotine dependence; Z88.8 Allergy status to other drugs, medicaments and biological substances
CPT/HCPCS: 36415; 80053; 83615; 84436; 84443; 84550; 96413; J7050; J9299

== ENCOUNTER 2018-05-31 09:02 | Outpatient (CLI) | payer MEDICARE ==
--- NOTE | 2018-05-31 11:43 | CT ---
CHEST CT WITH CONTRAST: Date: 05/31/18 HISTORY: Lung cancer. Patient is currently on chemotherapy. COMPARISON: 01/08/17, 12/11/17. TECHNIQUE: Postcontrast chest CT is performed in the axial plane. Reformatted images are submitted for interpret ation. FINDINGS: Stable postsurgical changes of the right hemithorax. There is stable increased soft tissue prominence in the superior aspect of the right hemithorax extending into the right hilum. There is a diminutive middle lobe. Compensatory hyperinflation of the right lower lobe is noted. There are two stable nodu les along the periphery of the right lower lobe currently measuring 0.4 x 0.2 and 0.7 x 0.5 cm. There are no new nodules in the right lung. There are multifocal 4.0 mm nodules in the left upper lobe in the lingula. These nodules have not changed in size or appearance. Central airway is patent. No pneumothorax. Stable asymmetric soft tissue density in the right perihilar region and right paratracheal region. He art size is normal. No pericardial fluid. The visualized aorta has a normal caliber. No periaortic fa t stranding. Visualized upper solid organs are stable. Redemonstration of an exophytic cyst emanating from the lat eral right renal cortex. No lytic or blastic lesions in the osseous structures. IMPRESSION: 1. Stable postsurgical change compatible with a right upper lobectomy. There is persistent soft tiss ue prominence along the periphery of the right hemithorax extending into the right perihilar region. 2. Multifocal less than 5.0 mm nodules involving the left lung, unchanged. POS: [facility]
[2018-05-31] MEDS ORDERED: ISOVUE-370 76%-LOCM 1 ML ONE (16:53)
== END 2018-05-31 09:03 | disposition home or self-care (01) ==
LOC: BICCT 09:02
PROVIDERS: ATTEND Internal Medicine Medical Oncology
DX: C34.90 Malignant neoplasm of unspecified part of unspecified bronchus or lung (principal); R91.8 Other nonspecific abnormal finding of lung field; Z98.890 Other specified postprocedural states
CPT/HCPCS: 71260

== ENCOUNTER 2018-06-02 14:53 | Day surgery (SDC) | payer MEDICARE ==
[2018-06-02] MEDS ORDERED: SODIUM CHLORIDE 0.9% IVPB SCH (15:30)
[2018-06-02] MEDS ORDERED: NIVOLUMAB IVPB SCH (15:30)
[2018-06-02 15:38] VITALS: BP 140/65; TEMP 98.3
== END 2018-06-02 17:36 | disposition home or self-care (01) ==
LOC: ONC/OP 14:53
PROVIDERS: ATTEND Internal Medicine Medical Oncology
DX: Z51.12 Encounter for antineoplastic immunotherapy (principal); C34.11 Malignant neoplasm of upper lobe, right bronchus or lung; M19.90 Unspecified osteoarthritis, unspecified site; Z87.891 Personal history of nicotine dependence; Z79.82 Long term (current) use of aspirin; Z79.899 Other long term (current) drug therapy
CPT/HCPCS: 96413; J7050; J9299

== ENCOUNTER 2018-06-15 09:47 | Outpatient (CLI) | payer MEDICARE ==
[2018-06-15] MEDS ORDERED: Gadobenate Dimeglumine 529 MG/1 ML (20ML VIAL) ONE (10:16)
--- NOTE | 2018-06-15 12:09 | MRI ---
MRI BRAIN WITHOUT AND WITH CONTRAST: Comparison: 02-24-18 History: Neoplasm of the brain. Lung cancer with brain metastases status post resection. Technique: Multiplanar, multisequence MRI images were obtained of the brain without and with IV contr ast. FINDINGS: Encephalomalacia is seen in the left parietal lobe. There is a small area of enhancement in the left parietal lobe in the region of encephalomalacia measuring 13 mm in greatest dimension. This may have slightly decreased in size compared to the prior examination and likely represents post therapy jefferson e rather than residual tumor. There is no evidence of hydrocephalus, intracranial hemorrhage, or extraaxial fluid collection. The e xpected flow voids are present. The corpus callosum, pituitary and craniocervical junction are unrema rkable. There is a small amount of fluid in the left maxillary sinus. IMPRESSION: Stable post-surgical change in the left parietal lobe. POS: [facility]
== END 2018-06-15 09:48 | disposition home or self-care (01) ==
LOC: BICMRI 09:47
PROVIDERS: ATTEND Radiology Radiation Oncology
DX: C34.90 Malignant neoplasm of unspecified part of unspecified bronchus or lung (principal); C79.31 Secondary malignant neoplasm of brain; Z98.890 Other specified postprocedural states
CPT/HCPCS: 70553; 82565

== ENCOUNTER 2018-06-22 12:13 | Outpatient (CLI) | payer MEDICARE | END 2018-06-22 12:14 | disposition home or self-care (01) | LOC: BICMAMMO 12:13 | PROVIDERS: ATTEND Family Medicine | DX: Z12.31 Encounter for screening mammogram for malignant neoplasm of breast (principal) | CPT/HCPCS: 77063; 77067 ==

== ENCOUNTER 2018-06-30 00:27 | Day surgery (SDC) | payer MEDICARE ==
[2018-06-30] MEDS ORDERED: SODIUM CHLORIDE 0.9% IVPB SCH (06:00)
[2018-06-30] MEDS ORDERED: NIVOLUMAB IVPB SCH (06:00)
[2018-06-30] MEDS ORDERED: Sodium Chloride 0.9% 20 ML ONE (14:32)
[2018-06-30 14:36] VITALS: BP 124/74; TEMP 97.8
== END 2018-06-30 16:06 | disposition home or self-care (01) ==
LOC: ONC/OP 00:27
PROVIDERS: ATTEND Internal Medicine Medical Oncology
DX: Z51.12 Encounter for antineoplastic immunotherapy (principal); C34.11 Malignant neoplasm of upper lobe, right bronchus or lung; M19.90 Unspecified osteoarthritis, unspecified site; Z87.891 Personal history of nicotine dependence; Z79.899 Other long term (current) drug therapy; Z88.8 Allergy status to other drugs, medicaments and biological substances
CPT/HCPCS: 80053; 82248; 83615; 84100; 84436; 84443; 84550; 96413; J7050; J9299

== ENCOUNTER 2018-07-28 14:45 | Day surgery (SDC) | payer MEDICARE ==
[~2018-07-28 14:45] MED LIST changes: +NIVOLUMAB IVPB SCH; -Nivolumab 240 MG in Sodium Chloride 0.9% 250 ML 250 ML IVPB SCH; +SODIUM CHLORIDE 0.9% IVPB SCH; -Sodium Chloride 0.9% 20 ML ONE
[2018-07-28] MEDS ORDERED: Sodium Chloride 0.9% 20 ML ONE (14:48)
== END 2018-07-28 16:21 | disposition home or self-care (01) ==
LOC: ONC/OP 14:45
PROVIDERS: ATTEND Internal Medicine Medical Oncology
DX: Z51.12 Encounter for antineoplastic immunotherapy (principal); C34.11 Malignant neoplasm of upper lobe, right bronchus or lung; Z87.891 Personal history of nicotine dependence; Z88.8 Allergy status to other drugs, medicaments and biological substances
CPT/HCPCS: 80053; 82248; 83615; 84100; 84436; 84443; 84550; 96413; J7050; J9299

== ENCOUNTER 2018-08-25 14:18 | Day surgery (SDC) | payer MEDICARE | END 2018-08-25 15:56 | disposition home or self-care (01) | LOC: ONC/OP 14:18 | PROVIDERS: ATTEND Internal Medicine Medical Oncology | DX: Z51.12 Encounter for antineoplastic immunotherapy (principal); C34.11 Malignant neoplasm of upper lobe, right bronchus or lung; Z88.8 Allergy status to other drugs, medicaments and biological substances | CPT/HCPCS: 36415; 80053; 82248; 83615; 84100; 84436; 84443; 84550; 96413; J7050; J9299 ==

== ENCOUNTER 2018-09-22 14:44 | Day surgery (SDC) | payer MEDICARE ==
[2018-09-22 15:34] VITALS: BP 130/95; TEMP 98.8
== END 2018-09-22 16:29 | disposition home or self-care (01) ==
LOC: ONC/OP 14:44
PROVIDERS: ATTEND Internal Medicine Medical Oncology
DX: Z51.12 Encounter for antineoplastic immunotherapy (principal); C34.11 Malignant neoplasm of upper lobe, right bronchus or lung; Z88.8 Allergy status to other drugs, medicaments and biological substances
CPT/HCPCS: 80053; 82248; 83615; 84100; 84436; 84443; 84550; 96413; J7050; J9299

== ENCOUNTER → 2018-10-20 | Day surgery (SDC) | payer MEDICARE ==
[2018-10-20 15:19] VITALS: BP 144/67; TEMP 97.6
== END ==
LOC: ONC/OP 14:48
PROVIDERS: ATTEND Internal Medicine Medical Oncology
DX: Z51.12 Encounter for antineoplastic immunotherapy (principal); C34.11 Malignant neoplasm of upper lobe, right bronchus or lung; R11.2 Nausea with vomiting, unspecified; Z88.8 Allergy status to other drugs, medicaments and biological substances
CPT/HCPCS: 80053; 82248; 83615; 84100; 84436; 84443; 84550; 96413; J7050; J9299

== ENCOUNTER 2018-11-17 08:59 | Inpatient (IN) | payer MEDICARE ==
[2018-11-17] MEDS ORDERED: Rocuronium Bromide 10 MG/ML (10ML VIAL) ONE (09:10)
[2018-11-17] MEDS ORDERED: Fentanyl 100 MCG/2 ML VIAL ONE (09:37)
[2018-11-17] MEDS ORDERED: Midazolam HCl 2 mg/2 ml Vial ONE (09:37)
[2018-11-17 09:48] LABS: #Basophils 0.1 thou/uL (0.0-0.2); #Monocytes 0.8 thou/uL (0.11-0.59); %Basophils 0.3 % (0.0-1.0); %Eosinophils 0.1 % (0.0-10.0); %Monocytes 5.2 % (0.0-10.0); %Neutrophils 88.3 % (42.0-75.0); Hemoglobin 12.6 g/dL (12.0-16.0); Mean Corpuscular HGB CONC 30.8 g/dL (32.0-36.0); Mean Corpuscular Hemoglobin 25.8 pg (27.0-31.0); Mean Corpuscular Volume 83.8 fL (78.0-98.0); Mean Platelet Volume 6.5 fL (7.4-10.4); Platelet Count 384 thou/uL (130-400); RBC Distribution Width 13.5 % (11.5-14.5); Red Blood Cell (RBC) Count 4.88 mill/uL (4.20-5.40); White Blood Cell (WBC) Count 15.9 thou/uL (4.8-10.8)
[2018-11-17 09:48] LABS: Actual Bicarbonate (HCO3a) 16.2 mEq/L (22-28); Analyzer IN Cardio ER; Base Excess (BEa) -5.7 mEq/L (-2.0 to +3.0); Calcium, Ionized 0.95 mmol/L (1.12-1.30); Carboxyhemoglobin (COHb) 0.3 gm% (0.0-3.0); Hemoglobin (Hb) 12.3 g/dL (12.0-16.0); O2 Tension (PaO2) 78.7 mmHg (> 80.0); Potassium - ABG Lab 3.12 mmol/L (3.70-5.30); pH, Arterial 7.47 (7.35-7.45)
[2018-11-17 09:49] LABS: Actual Bicarbonate (HCO3a) 18.4 mEq/L (22-28); Analyzer IN Cardio ER; Base Excess (BEa) -7.4 mEq/L (-2.0 to +3.0); CO2 Tension 38.4 mmHg (35.0-45.0); Carboxyhemoglobin (COHb) 0.2 gm% (0.0-3.0); Hemoglobin (Hb) 13.2 g/dL (12.0-16.0); O2 Tension (PaO2) 93.9 mmHg (> 80.0); Potassium - ABG Lab 3.15 mmol/L (3.70-5.30)
[2018-11-17 09:49] LABS: CO2 Tension 22.6 mmHg (35.0-45.0); Puncture Site RRA
[2018-11-17 09:50] LABS: Puncture Site RRA
--- NOTE | 2018-11-17 09:59 | RAD ---
"PRELIMINARY REPORT" Myocardial perfusion evaluation History 83-year-old female with chest pain Reference is made to 12/31/2017 exam Right pharmaceutical: 30.5 and 28.8 mCi technetium 99m sestamibi IV at stress and rest FINDINGS: Evaluation of stress and rest imaging reveals a fixed defect of the anterior left ventricul ar wall. Correlation with dedicated imaging does reveal motion and contractility of this region therefore favoring breast attenuation artifact. Otherwise no significant fixed or reversible defects are seen. The LVEF is calculated at 58%, grossly stable to prior exam. Impression fixed defect of the anterior wall, as above, favoring breast attenuation artifact. Grossly stable LVEF.
--- NOTE | 2018-11-17 10:08 | RAD ---
PORTABLE CHEST: Date: 11/17/18 HISTORY: Mental status change. Comparison made to chest film of 09/23/[address] of 05/31/18. FINDINGS/IMPRESSION: ET tube and NG tube are in place. Volume loss in the right lung again noted. Right upper lobe cavitar y lesions have been previously described with pleural thickening. There is increased opacity in the a erated portion of the right lower lung today concerning for infiltrate and/or edema. There is diffuse interstitial and hazy alveolar density throughout the left lung concerning for edema and/or infiltrate. POS: [facility]
[2018-11-17 10:09] LABS: ALT (SGPT) 12 U/L (8-55); AST (SGOT) 15 U/L (5-34); Albumin 3.3 g/dL (3.4-4.8); Alkaline Phosphatase 97 U/L (40-150); Anion Gap 16 mmol/L (10-20); BUN (Urea Nitrogen) 11 mg/dL (9.8-20.1); Bilirubin, Total 0.5 mg/dL (0.2-1.2); Calc. Creatinine Clearance 0 mL/min (70-130); Calcium 7.4 mg/dL (7.8-10.44); Carbon Dioxide 17 mmol/L (23-31); Chloride 108 mmol/L (98-107); Estimated GFR-MDRD 87; Globulin 2.9 g/dL (2.4-3.5); Glucose 133 mg/dL (80-115); Potassium 3.5 mmol/L (3.5-5.1); Protein, Total 6.2 g/dL (6.0-8.3); Sodium 137 mmol/L (136-145)
--- NOTE | 2018-11-17 10:21 | CT ---
CT Brain WO Con: 11/17/2018 9:17 AM CLINICAL HISTORY: Altered mental status. COMPARISON: None. FINDINGS: Hemorrhage: No acute hemorrhage. Ventricular system: Ex vacuo dilatation of left lateral ventricle. Effacement of right ventricle and leftward shift due to mass effect from right frontal lobe. There is associated mild increased density of the right frontal horn, suggestive of transependymal involvement. Cerebral parenchyma: There is a rim hyperdense right frontal lobe mass with large volume associated v asogenic edema, mass effect and associated leftward subfalcine herniation. Redemonstration of posterior left cerebral hemispheric encephalomalacia. Midline shift: Leftward midline shift, which measures 11 mm at level of septum pellucidum. Calvarium: Normal. Visualized Paranasal sinuses: Clear. IMPRESSION: Rim hyperdense mass of the right frontal lobe with large volume vasogenic edema, associated mass effe ct and midline shift. This could either relate to malignancy versus abscess. Dedicated pre and postcontrast brain MRI is re commended. Findings called to Dr. Demond Cervantes in emergency department. 1016 hours, 11/17/2018. CODE CR. Transcribed Date/Time: 11/17/2018 10:33 AM
[2018-11-17 10:29] LABS: Acetaminophen Less than 6.0 mcg/mL (10.0-30.0); Alcohol Less than 10 mg/dL (Less than 10); CK (CPK) 33 U/L (29-168); Lipase 21 U/L (8-78); Salicylate Less than 8.0 mg/dL (15.0-30.0)
[2018-11-17] MEDS ORDERED: Nitroglycerin 2% Ointment 1 INCH/1 GM Packet ONE (10:43)
[2018-11-17] MEDS ORDERED: Clindamycin/D5W 900 mg/50 ml Premix Bag ONE (10:43)
[2018-11-17] MEDS ORDERED: Dexamethasone 10 MG/ML VIAL ONE (10:43)
[2018-11-17] MEDS ORDERED: Piperacillin/Tazobactam 4.5 GM VIAL ONE (10:43)
[2018-11-17 10:49] LABS: CKMB 1.2 ng/mL (0-6.6)
[2018-11-17] MEDS ORDERED: ISOVUE-370 76%-LOCM 1 ML ONE (10:49)
--- NOTE | 2018-11-17 10:55 | CT ---
CT THORAX WITH CONTRAST CT ABDOMEN WITH CONTRAST CT PELVIS WITH CONTRAST: DATE: 11/17/18 TIME: 10:13 A.M. HISTORY: 63-year-old female with history of metastatic lung cancer presents to the emergency department with d yspnea. COMPARISON: Chest CT of 05/31/18, and abdominal CT of 01/08/17. FINDINGS: New endotracheal tube with distal tip at mid thoracic trachea. New esophagogastric tube with distal t ip in proximal corpus or fundus of stomach. As seen previously, there is total opacification of the r ight upper lobe with soft tissue density material surrounding at least two large cavitations. Current ly, both large cavitations contain new air fluid levels. The previously relatively clear rest of the bilateral lungs are now diffusely infiltrated with mixed interstitial and alveolar infiltrates, predo minantly interstitial, consistent with pulmonary edema. In addition to this, there are air space-cons olidations of the posterior, dependent portions of the bilateral lower lobes, right greater than left , which could represent aspiration, pulmonary alveolar edema, or other type of pneumonia. The aorta i s normal. No pericardial effusion or pneumothorax. Moderately large exophytic cyst from right kidney is stable. There has been rapid interval growth of a smaller left renal cyst at the posterior upper p ole parenchyma, now measuring approximately 1.5 cm. No hydronephrosis and no evidence of pyelonephrit is. Hepatic attenuation is slightly heterogeneous suggestive of venous congestion. No metastatic live r mass identified. No adrenal nodule. Pancreas and spleen are normal. In fact, the spleen has shrunk in size since the previous CT. Distended, but otherwise normal urinary bladder. No ascites or pneumop eritoneum. No colonic diverticulitis. No small bowel dilation. IMPRESSION: 1. Diffuse bilateral pulmonary interstitial and alveolar edema. 2. Consolidation in right lower lobe suspicious for pneumonia (aspiration or otherwise). 3. Smaller consolidation in the contralateral left lower lobe. 4. Totally opacified right upper lobe containing new finding of fluid within the large cavities. 5. No acute findings within the abdominal cavity or pelvic cavity. MARIS R POS: [facility]
[2018-11-17] MEDS ORDERED: Labetalol HCl 100 MG/20 ML VIAL ONE (11:07)
[2018-11-17] MEDS ORDERED: Ibuprofen 100 MG/5 ML UDCUP ONE (11:17)
[2018-11-17 11:48] LABS: Bilirubin Negative (Negative); Blood, Urine Trace (Negative); Glucose, Urine (Dipstick) Negative (Negative); Leukocyte Negative (Negative); Nitrite Negative (Negative); Protein, Urine (Dipstick) 30 mg/dL (Neg-Trace); Urobilinogen 0.2 mg/dL (Less than 2)
[2018-11-17 11:54] LABS: Clarity Hazy (Clear)
[2018-11-17] MEDS ORDERED: fentaNYL Citrate/PF 2,000 MCG in Sodium Chloride 0.9% 60 ML IV SCH (11:56)
[2018-11-17 11:57] LABS: Bacteria/HPF None Seen HPF (None Seen); RBC/HPF None Seen HPF (0-3); Squamous Epithelial None Seen HPF (0-3); WBC/HPF None Seen HPF (0-3)
[2018-11-17 12:01] LABS: Amphetamine Not Detected (NotDetected); Barbiturates Screen Not Detected (NotDetected); Benzodiazepine Screen Not Detected (NotDetected); Cocaine Metabolite Screen Not Detected (NotDetected); Medtox Control Line Valid? VALID (VALID); Medtox Reader # READER 1; Methadone Not Detected (NotDetected); Methamphetamine Not Detected (NotDetected); Opiate Screen Not Detected (NotDetected); Oxycodone Screen Not Detected (NotDetected); Phencyclidine (PCP) Not Detected (NotDetected); THC/Cannabinoid Screen Not Detected (NotDetected); Tricyclic Screen Not Detected (NotDetected)
[2018-11-17] MEDS ORDERED: Acetaminophen 325 MG TAB PO PRN (12:14)
[2018-11-17] MEDS ORDERED: CCU Electrolyte Replacement 1 EACH IVPB ONE (12:19)
[2018-11-17] MEDS ORDERED: Potassium Phosphate 15 MMOL in Sodium Chloride 0.9% 250 ML 250 ML IV PRN (12:26)
[2018-11-17] MEDS ORDERED: Magnesium 2 GM/50 ML 2 GM in Premix Bag 1 BAG IVPB PRN (12:26)
[2018-11-17] MEDS ORDERED: Potassium Chloride 40 MEQ in Premix Bag 1 BAG IVPB PRN (12:26)
[2018-11-17] MEDS ORDERED: CCU ELECTROLYTE REPLACEMENT PROTOCOL FS PRN (12:26)
[2018-11-17] MEDS ORDERED: Potassium Chloride 40 MEQ in Sodium Chloride 0.9% 250 ML 250 ML IVPB PRN (12:26)
[2018-11-17] MEDS ORDERED: Potassium Phosphate 12 MMOL in Sodium Chloride 0.9% 250 ML 250 ML IV PRN (12:26)
[2018-11-17] MEDS ORDERED: Potassium Phosphate 9 MMOL in Sodium Chloride 0.9% 100 ML IVPB PRN (12:26)
[2018-11-17] MEDS ORDERED: Potassium Chloride 20 MEQ TAB PO PRN (12:26)
[2018-11-17] MEDS ORDERED: Magnesium Oxide 400 MG TAB PO PRN ×2 (12:26)
[2018-11-17] MEDS ORDERED: PHOS-NAK 1 PKT PACK PO PRN ×2 (12:26)
[2018-11-17] MEDS ORDERED: Acetaminophen 650 MG Suppository ONE (13:43)
[2018-11-17] MEDS ORDERED: Acetaminophen 325 MG Suppository ONE (13:43)
[2018-11-17 14:00] LABS: Lactic Acid 7.4 mmol/L (0.5-2.2)
--- NOTE | 2018-11-17 14:05 | CON ---
DATE OF CONSULTATION: REASON FOR CONSULT: Brain met. HISTORY OF PRESENT ILLNESS: Ms. Perez is a pleasant 63-year-old female, who was diagnosed with stage 3 adenocarcinoma of the lung in early 2014. She underwent concurrent chemoradiation with improvement of disease. In April 2016, she had a solitary right parietal lobe metastasis, which was treated with stereotactic radiosurgery. She has been on immunotherapy with Opdivo since November of 2015 and doing well. She has been followed with brain MRIs. Her last was in June of 2018, it showed no evidence of disease. She had been having an increase in hemoptysis recently and a chest CT was ordered this week for restaging. This morning, she presented to the emergency room with altered mental status. Her brain CT showed a hyperdense mass of the right frontal lobe with large volume edema. She had a mass effect and midline shift. Her chest, abdomen, and pelvis CT showed diffuse bilateral pulmonary interstitial and alveolar edema. She had a consolidation in the right lower lobe suspicious for pneumonia. She had a totally opacified right upper lobe with fluid within the cavities. She was poorly responsive and intubated. She was given some paralytics at intubation, but has not received any sedation in several hours. She remains unresponsive. We were asked to see the patient regarding prognosis. PAST MEDICAL HISTORY: 1. 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 2. Arthritis. PAST SURGICAL HISTORY: 1. Carpal tunnel syndrome. 2. Cholecystectomy. 3. Back surgery. 4. Hysterectomy. 5. Stereotactic radiosurgery. ALLERGIES: TO CHANTIX. HOME MEDICATIONS: 1. Aspirin 81 mg daily. 2. Calcium daily. 3. Neurontin 300 mg t.i.d. 4. Xanax 0.25 mg p.r.n. FAMILY HISTORY: Sister with breast cancer. SOCIAL HISTORY: has 4 children. Lives with her spouse. Former smoker. No alcohol or illicit drug use. REVIEW OF SYSTEMS: Unable to obtain secondary to altered mental status and intubation. PHYSICAL EXAMINATION: VITAL SIGNS: Per ER record. GENERAL: Well-developed female, in no distress. HEENT: Normocephalic and atraumatic. Pupils are poorly responsive. CV: Regular rate and rhythm. She is tachycardic. LUNGS: With crackles and rub. ABDOMEN: Soft. EXTREMITIES: No clubbing or cyanosis. SKIN: No rash. She is mottled. NEUROLOGIC: Unable to assess. PERTINENT LABS AND X-RAYS: WBCs are 15.9, hemoglobin 12.6, hematocrit 40.9, platelet count 384,000, 88% neutrophils, and 6% lymphocytes. Sodium is 137, potassium is 3.5, chloride is 108, CO2 is 17, BUN is 11, creatinine is 0.68, lactic acid is 5.4, calcium is 7.4, bilirubin is 0.5, AST is 15, ALT is 12, alkaline phosphatase is 97, serum total protein is 6.2, albumin is 3.3, and globulin is 2.9. Radiology per HPI. ASSESSMENT: 1. Stage 4 non-small cell adenocarcinoma of the lung with apparent new brain lesion. 2. Unresponsive secondary to #1. DISCUSSION: The patient has been intubated to protect her airway. She is currently on antibiotics. She has not required vasopressors. She was given a dose of labetalol for tachycardia with a subsequent drop in pressure. She is currently receiving a bolus of IV fluids. She has been given a dose of IV steroids. This lesion is likely secondary to her lung cancer. The family was at bedside. I discussed this is a large lesion with significant edema. We will continue steroids and see if she improves. Neurosurgery has been consulted to consider possible craniotomy. If she improves with steroids, I will ask Dr. Reyes to give his opinion on whether they could treat this with radiation. We also discussed end of life including extubation and hospice. Family will discuss further. Palliative Care will see the patient and family. Thank you for the consult. Job ID: [id number] [facility]
[2018-11-17] MEDS ORDERED: levETIRAcetam 500 MG/100 ML PREMIX BAG ONE (14:28)
[2018-11-17] MEDS ORDERED: Mannitol 12.5 GM/50 ML SLOW IVP SCH (14:30)
[2018-11-17] MEDS: Cefepime 2 GM in Sodium Chloride 0.9% 100 ML IVPB SCH ×2 (15:27→21:07)
[2018-11-17] MEDS: metroNIDAZOLE 500 MG in Premix Bag 1 BAG IVPB SCH ×2 (15:28→21:08)
[2018-11-17] MEDS: Albumin 25% 25 GM/100 ML BOT IVPB SCH (15:29)
--- NOTE | 2018-11-17 15:41 | CON ---
DATE OF CONSULTATION: 11/17/2018 HISTORY OF PRESENT ILLNESS: Ms. Perez was brought to the emergency department this morning following altered mental status. Per family and , the patient has progressively become more confused and worse headache over the last week or so. The patient has a history of lung cancer metastatic to the brain, which was treated with a craniotomy by Dr. Ibanez in December 2016. The patient also sees Dr. Reyes for Oncology. She has been doing fairly well in the last two years. Family states that she takes care of herself, and has been doing all of her followup. Her and her live alone. Neurosurgery has been consulted due to a new right-sided lesion with mass effect in the right frontal lobe and the patient was presented at the emergency department with respiratory distress, ED intubated her. When I see her, she has not had any sedation. Exam and core: She has reactive pupils, however sluggish. She has Doll's eyes. There is no gag reflex to localize to painful stimuli. Only sternal rub with the right upper extremity. No other movement in her extremities. REVIEW OF SYSTEMS: A 10-point review of systems has been completed and is negative other than stated in the above HPI. ALLERGIES: NO KNOWN DRUG ALLERGIES. CURRENT MEDICATIONS: None reported. PAST MEDICAL HISTORY: Lung cancer, previously metastasized to the brain. She undergoes radiation. History of smoking. PAST SURGICAL HISTORY: Lumbar laminectomy, carpal tunnel, cholecystectomy, hysterectomy, and craniotomy. SOCIAL HISTORY: The patient is a former smoker. She quit in the past year. Denies alcohol use. Denies drug use. Lives alone with . PHYSICAL EXAMINATION: CONSTITUTIONAL: The patient is tachycardic, normotensive. RESPIRATORY: She is on a ventilator. Symmetric chest rise. VITAL SIGNS: Temperature she has 101.9. NEUROLOGIC: The patient is not responsive to verbal stimuli. Her pupils are round, equal, and reactive, but sluggish. There is Doll's eye present. She has no gag reflex. There is a localization to sternal rub with the right upper extremity. There are no other reactions. IMAGING: CT of the brain shows rim of hyperdense mass of the right frontal lobe with large volume vasogenic edema associated with mass effect and midline shift. ASSESSMENT/PLAN: Ms. Perez is a 63-year-old female with metastatic lung cancer. She underwent a left-sided craniotomy for resection of tumor in 2017. She now has a recurrence on the right hemisphere. At this time, the hospitalist is going to admit the patient to the ICU. She is currently intubated and will get Decadron and mannitol. We will discuss the possibility of surgical resection of this mass with the family or discus palliative measures. For more information, please contact Neurosurgery Team. Job ID: [id number]
[2018-11-17 15:55] VITALS: BMI 30.7
[2018-11-17] MEDS ORDERED: Hydrocortisone Sod Succ/PF 250 mg/2 ml Vial SLOW IVP SCH (16:00)
[2018-11-17 16:03] LABS: Actual Bicarbonate (HCO3a) 14.4 mEq/L (22-28); Base Excess (BEa) -12.2 mEq/L (-2.0 to +3.0); CO2 Tension 35.1 mmHg (35.0-45.0); Calcium, Ionized 1.01 mmol/L (1.12-1.30); Carboxyhemoglobin (COHb) 0.5 gm% (0.0-3.0); Hemoglobin (Hb) 13.2 g/dL (12.0-16.0); O2 Tension (PaO2) 161.2 mmHg (> 80.0); Potassium - ABG Lab 4.56 mmol/L (3.70-5.30)
[2018-11-17 16:06] LABS: Puncture Site RRA; pH, Arterial 7.23 (7.35-7.45)
[2018-11-17 16:07] LABS: ALV-art Gradient 507.925 (0-20)
[2018-11-17] MEDS ORDERED: Sodium Bicarb 50 MEQ/50 ML VIAL ONE (16:10)
--- NOTE | 2018-11-17 16:23 | PRG ---
DATE OF SERVICE: 11/17/2018 This is a 30-minute initial hospital visit note, in which 30 minutes were spent reviewing the imaging record, evaluation, examination of the patient, formulation of plan. Greater than 50% of the time was spent in counseling on Ms. Corie Perez. Ms. Perez is a 63-year-old woman who is known to me in 2017. I did a left superior parietal lobule resection for lung adenocarcinoma. She has done remarkably well for the last two years, but over the last one week according to family as they relate to our medical team, as family is not currently present as I am seeing the patient, she has been essentially somnolent and obtunded. She is brought in for further evaluation. Head CT demonstrates stability in the left parietal resection cavity, but unfortunately what appears to be a large mass in the right frontal lobe with extensive vasogenic edema with subfalcine herniation and substantial [id number] midline shift. Accordingly, the patient has a poor neurologic exam. From a systemic standpoint, she has leukocytosis at 15.9. There is concern of aspiration pneumonia and she is intubated. Her lactate is elevated from 5.4 this morning up to 7.4 with the elevation of her troponin. Her sodium is 137. Her blood pressure has been in approximately the 90/60 range and she has been tachycardic at 110. Currently, she is intubated and not on sedation during my evaluation. She has pinpoint pupils with a conjugate gaze, but does not attend to the examiner. Again, she is intubated, has no responses in her extremities to noxious stimuli. Impression and plan; I have discussed her case extensively with Dr. Trejo, who has just met with the family. She has been made DNR and we are precluded from initiating mannitol at this point due to low blood pressure and elevated heart rate. There is concern again of aspiration and potential sepsis associated pneumonia. She obviously has metastatic disease that extensively involves her lung. The plan has been to initiate Decadron to see if there is any improvement or stabilization from a medical standpoint or even from a neurologic standpoint, although I would say I think her chance of outcome even with surgery is quite poor and the need for prolonged intubation is substantial. As such, I do not think right frontal craniotomy for tumor resection I think that it is unlikely to bring the patient any meaningful improvement. She has already defied typical data in regard to survival with metastatic cancer 1. Right frontal metastatic adenocarcinoma with neurologic decline. 2. Concern of sepsis with aspiration pneumonia. Job ID: [id number]
[2018-11-17] MEDS ORDERED: Sodium Bicarb 50 MEQ/50 ML VIAL IVP SCH (17:00)
[2018-11-17] MEDS: Sodium Chloride 0.9% 1,000 ML IV SCH ×2 (17:20→23:54)
[2018-11-17] MEDS: Dexamethasone 4 mg/ml Vial SLOW IVP SCH ×2 (17:21→23:54)
[2018-11-17] MEDS ORDERED: Piperacillin/Tazobactam 3.375 GM in Sodium Chloride 0.9% 100 ML IVPB SCH (18:00)
[2018-11-17] MEDS ORDERED: Dexamethasone 4 mg/ml Vial SLOW IVP SCH (18:00)
[2018-11-17 19:03] LABS: Magnesium 1.7 mg/dL (1.6-2.6); Phosphorus 3.4 mg/dL (2.3-4.7)
--- NOTE | 2018-11-17 19:53 | HP ---
CHIEF COMPLAINT: Altered mental status. HISTORY OF PRESENT ILLNESS: The patient is a 63-year-old female with a history of lung cancer, currently on Opdivo, who presented to the hospital with multiple syncopal episodes. The patient's is at the bedside stated that she has apparently been falling since last night, however, this morning when she fell, she became really unresponsive and this time EMS was called. The patient's son is at the bedside stated that for the past few days he has noticed his mother talking, however, at times she would say things that would not make sense. The patient in the ER was intubated for respiratory distress and she also underwent CT head, which indicated significant right frontal lobe hyperdense mass and also edema with a midline shift. The patient was then intubated in the ER. PAST MEDICAL HISTORY: 1. 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 2. Arthritis. PAST SURGICAL HISTORY: 1. Carpal tunnel syndrome. 2. Cholecystectomy. 3. Back surgery. 4. Hysterectomy. 5. STEREOTACTIC radiosurgery. ALLERGIES: SHE IS ALLERGIC TO CHANTIX. HOME MEDICATIONS: She is on; 1. Aspirin 81 mg daily. 2. Calcium daily. 3. Neurontin 300 mg t.i.d. 4. Xanax 0.25 mg p.r.n. FAMILY HISTORY: Sister had breast cancer. SOCIAL HISTORY: She is , has four kids, lives with her . She is a former smoker. No alcohol or drug use. I did speak with the Oncology nurse practitioner and the patient at this time per family member was DNAR. REVIEW OF SYSTEMS: Unable to obtain. PHYSICAL EXAMINATION: VITAL SIGNS: As of the following. The patient initially was tachycardic and hypertensive. However, after giving her some labetalol, she dropped her pressures down. Her temperature was found to be in 101.9. Initially blood pressure was 161/138. Nitropaste was put in and also she was given some labetalol and also her pulse was 168. After giving the labetalol, she dropped her pressures down to 76/58 with a heart rate of 102 and respirations of 20 and she is currently on 100% FiO2. HEENT: Normocephalic and atraumatic. Pupils are reactive to light and sluggish, but they are reactive. CV: S1 and S2 present. Tachycardia sinus. She does have significant rhonchi and little bit of crackles to bilateral lower lung bases. ABDOMEN: Soft. Bowel sounds are present x2. Does not appear in distress upon palpation. EXTREMITIES: Pedal pulses are present x2. Unable to do neuro checks at this time. SKIN: No cuts, lesions, or bruises noted. LABORATORY RESULTS: As of the following; her WBCs of 15.9, hemoglobin of 12.6, hematocrit of 40.9, her platelets are 384. Chemistry; sodium of 137, potassium of 3.5, BUN of 11, creatinine of 0.68. Her calcium is 7.4. Her initial lactic acid was 5.4, her repeat one was 7.4. Her troponin x1 was 0.122. She did have ABG which initially pH was 7.47 and CO2 was 22 with O2 of 78.7. Her repeat one, her pH was 7.3 with a PO2 of 93.9. The patient also had a CT of abdomen and pelvis and a CT brain. CT chest, abdomen, pelvis indicated diffuse pulmonary interstitial and alveolar edema, consolidation of the right lower lobe suspicious for pneumonia and also opacification of the right upper lobe containing new findings of fluid with large cavities. No acute findings with abdominal cavity or pelvic cavity. She also had a brain CT, which indicated a rim hyperdense mass of the right frontal lobe with large volume, vasogenic edema associated with mass effect and midline shift. ASSESSMENT AND PLAN: The patient is a 63-year-old female, who presents to the hospital with altered mental status. 1. Acute respiratory failure. The patient currently is intubated. We will start the patient on some broad-spectrum antibiotics. Blood cultures and urine culture done. ER has notified the critical care physician. She is currently sedated and she has received a total of 5.5 L of normal saline. I will give her some albumin. 2. Elevated lactic acidosis most likely secondary to her underlying pathology and possible pneumonia. We will continue to monitor. 3. Possible aspiration pneumonia. Again, I will start her on antibiotics that will cover her pneumonia and also any other infectious etiology. I will start her on cefepime, Flagyl, and vancomycin. 4. Leukocytosis. Again, this could be most likely secondary to her infectious etiology. 5. Sepsis. Again most likely secondary to possibly her pneumonia. We will continue to monitor. 6. Hyperdense mass to the right frontal lobe with vasogenic edema. Neurosurgery has been consulted. I will also start the patient on some steroids and I will continue her Keppra IV and continue to monitor. Job ID: [id number]
[2018-11-17] MEDS: Pantoprazole 40 MG VIAL IVP SCH (21:07)
[2018-11-17] MEDS: Famotidine/PF 20 mg/2ml Vial SLOW IVP SCH (21:07)
[2018-11-17 22:35] VITALS: BP 111/82
[2018-11-17] MEDS: Vancomycin HCl 1.25 GM in Sodium Chloride 0.9% 250 ML 250 ML IVPB SCH (22:41)
[2018-11-18] MEDS: Dexamethasone 4 mg/ml Vial SLOW IVP SCH ×3 (05:30→18:00)
[2018-11-18] MEDS: Cefepime 2 GM in Sodium Chloride 0.9% 100 ML IVPB SCH ×3 (05:30→22:47)
[2018-11-18] MEDS: metroNIDAZOLE 500 MG in Premix Bag 1 BAG IVPB SCH ×3 (05:31→22:48)
[2018-11-18] MEDS: Sodium Chloride 0.9% 1,000 ML IV SCH ×3 (05:33→19:25)
[2018-11-18 06:39] LABS: Hemoglobin 11.7 g/dL (12.0-16.0); Mean Corpuscular HGB CONC 31.2 g/dL (32.0-36.0); Mean Corpuscular Hemoglobin 25.5 pg (27.0-31.0); Mean Platelet Volume 7.1 fL (7.4-10.4); Platelet Count 208 thou/uL (130-400); RBC Distribution Width 13.7 % (11.5-14.5); Red Blood Cell (RBC) Count 4.59 mill/uL (4.20-5.40); White Blood Cell (WBC) Count 20.9 thou/uL (4.8-10.8)
[2018-11-18 06:44] LABS: Anion Gap 8 mmol/L (10-20); BUN (Urea Nitrogen) 12 mg/dL (9.8-20.1); Calc. Creatinine Clearance 118 mL/min (70-130); Calcium 7.6 mg/dL (7.8-10.44); Carbon Dioxide 20 mmol/L (23-31); Chloride 115 mmol/L (98-107); Estimated GFR-MDRD 85; Glucose 229 mg/dL (80-115); Potassium 3.3 mmol/L (3.5-5.1); Sodium 140 mmol/L (136-145)
[2018-11-18 07:11] LABS: Actual Bicarbonate (HCO3a) 17.4 mEq/L (22-28); Base Excess (BEa) -7.3 mEq/L (-2.0 to +3.0); CO2 Tension 32.9 mmHg (35.0-45.0); Carboxyhemoglobin (COHb) 0.4 gm% (0.0-3.0); Hemoglobin (Hb) 12.3 g/dL (12.0-16.0); O2 Tension (PaO2) 197.3 mmHg (> 80.0); pH, Arterial 7.34 (7.35-7.45)
[2018-11-18 07:12] LABS: ALV-art Gradient 474.575 (0-20); Puncture Site RRA
--- NOTE | 2018-11-18 07:31 | PRG ---
DATE OF SERVICE: 11/18/2018 I personally interviewed and examined the patient and agreed with documentation of Azeb Cruz PA-C, dated 11/18/2018. Briefly, Corie Perez is a 63-year-old woman operated [address] Ibanez for a brain metastasis. She is undergoing cancer treatment chronically and returned to the hospital yesterday with neurological decline. CT examination of brain suggested a right frontal metastasis with surrounding vasogenic edema and subfalcine shift. Ms. Perez was doing so poorly yesterday that she required intubation. CT examination of chest, abdomen, pelvis showed opacification of the upper lobe, some infiltrates in the lower lobes. No mention was made of large lymph nodes elsewhere. Overnight, Ms. Perez has been kept on the ventilator. Vitals are reasonably stable. Fentanyl is running as I am trying to examine her. If I stimulate her now, she starts to move all 4 extremities. She wiggles her toes to command, but I have not gotten her to lift the thumb to command. Ms. Perez is clearly not in a position to make a decision about her care going forward. I will need to speak with the family. Dr. Trejo felt yesterday that her general health and lungs were too poor to tolerate any surgical intervention, so we will have to use Decadron for now and some proton pump inhibitors while we sort out what the family wishes would be. I appreciate the input from Oncology and will follow up with them in person later today. Job ID: [id number]
--- NOTE | 2018-11-18 07:44 | CON ---
DATE OF CONSULTATION: HISTORY OF PRESENT ILLNESS: Corie Perez is a 63-year-old female, well known to us, who presented to the ER with confusion, mental status change, respiratory failure. She is intubated in the ER. at the bedside who states that she has been feeling syncopal episode, passing out for the last week or so. Not responding, became progressively more confused and fell. On arrival to the ER, heart rate is 135, systolic blood pressure 150, temperature 101, respirations 40. Blood sugar 133. She was intubated. She has had a gradual decline of health over a period of time. She lost considerable weight. PAST MEDICAL HISTORY: Extensive past medical history is outlined for one previous bronchogenic adenocarcinoma, status post bronchoscopy, right upper lung. Status post metastatic disease to the brain, status post surgery, status post COPD, former smoker. Marked weight loss, confusion. PREVIOUS SURGERIES: Included previous carpal tunnel, hysterectomy, cholecystectomy, craniotomy, previous laminectomy. MEDICATIONS: Medicine apparently brought from home includes Tylenol No. 3. Unclear whether she is taking Keppra 500 twice a day. She has a rescue inhaler which she is taking. She has Celexa 20 a day, albuterol inhaler. ALLERGIES: APPARENTLY CHANTIX. SOCIAL HISTORY: Tobacco, former smoker, quit smoking at the time of the initial diagnosis of the lung cancer in 2014. REVIEW OF SYSTEMS: Otherwise unobtainable. PHYSICAL EXAMINATION: VITAL SIGNS: She is hypotensive, blood pressure 92/50, pulse 101, respirations 20. CHEST: Revealed bilateral extensive rhonchi and crackles. CARDIAC: Sinus tach. ABDOMEN: Soft. EXTREMITIES: No edema. Pupils are equal. She is unresponsive. LABORATORY DATA: CT of the head shows a new right frontal lesion with significant edema. Chest x-ray shows extensive left lower lung as well as right upper lung cavitary mass and right lower lobe infiltrate. White count 15,000, H and H 12 and 40, platelet count is normal. PO2 is 93, pCO2 38, pH 7.30, rate 16. Lytes are normal. Lactic acid is elevated. CT brain as noted. CT chest and abdomen shows mainly the lung issues, is well outlined including bilateral bronchopneumonia and the right upper lung cavitary infiltrate. Respiratory failure; aspiration pneumonia; ARDS; adenocarcinoma of right upper lung, status post chemo radiation, status post previous craniotomy; former smoker; COPD. PLAN: She is a DNR. Several members were present including the and three of her kids. They all agree with DNR status. I spoke with Dr. Ibanez, neurosurgeon. At this stage, I would hold off doing any surgical intervention considering her hypertension and severe neurological impairment. He agrees. We will institute Decadron until she is better. If she is substantially improved tomorrow morning, she is awake, responsive, may consider repeating an MRI intervention at that time. IMPRESSION: 1. Metastatic adenocarcinoma with large right frontal lesion. 2. Possibly sepsis syndrome. 3. Respiratory failure, acute respiratory distress syndrome, severe deconditioning etc. Continue broad-spectrum antibiotics. Continue Decadron. Hydrocortisone can be initiated. She may require if blood pressure does not improve. Once again, she is a DNR. This is a 45-minute critical time. Job ID: [id number]
[2018-11-18 07:49] LABS: Band 20 % (5-11); Lymphocytes 1 % (21-51); MDiff Complete? YES; Neutrophil 79 % (42-75); Platelet Morphology Comment Appears Adequate; RBC Morphology Normal
--- NOTE | 2018-11-18 08:33 | PRG ---
DATE OF SERVICE: 11/18/2018 SUBJECTIVE: This morning, she remains intubated on the vent. She was started on fentanyl yesterday because she is biting on the tube. She is supposed to be somewhat more responsive, but clearly very encephalopathic. OBJECTIVE: VITAL SIGNS: Pulse 108, blood pressure is 120/48, saturations are 95%, and respirations are 19. I's and O's have been consistently positive. CHEST: Extensive rhonchi and crackles. CARDIAC: Sinus tach. ABDOMEN: Soft. NEUROLOGIC: Encephalopathic. LABORATORY DATA: PO2 is 197, pCO2 is 32, pH of 7.34 at a rate of 24, 100% FiO2. BUN and creatinine are better. Glucose 229. White count 20,000, H and H of 11 and 37. IMAGING DATA: X-ray shows right upper lung cavitary infiltrate and extensive infiltrate in the left chest. ASSESSMENT: 1. Respiratory failure. 2. Large right frontoparietal metastatic cancer. 3. Aspiration pneumonia. 4. Chronic obstructive pulmonary disease. 5. Do not resuscitate. PLAN: 1. I will continue broad-spectrum antibiotics. 2. Neb treatments, steroids, start nutrition. Discussed with family as they arrive. 3. Once again, at this stage it is unclear whether she would benefit from a craniotomy, excision of the tumor. She may require prolonged hospitalization, ongoing events, antibiotics, neb treatments, supportive care. 4. We will discuss with Oncology when they arrive. This is one-half hour of critical care time. Job ID: [id number]
[2018-11-18] MEDS: Famotidine/PF 20 mg/2ml Vial SLOW IVP SCH ×2 (08:37→22:47)
[2018-11-18] MEDS: Pantoprazole 40 MG VIAL IVP SCH ×2 (08:38→22:47)
[2018-11-18] MEDS ORDERED: Prevnar 13-Val Conj/PF 0.5 ML SYRINGE IM ONE (09:00)
[2018-11-18] MEDS ORDERED: Dexamethasone 10 MG in Sodium Chloride 0.9% 50 ML IVPB SCH (09:00)
[2018-11-18] MEDS ORDERED: Vancomycin HCl 1 GM in Premix Bag 1 BAG IVPB SCH (09:00)
--- NOTE | 2018-11-18 09:06 | RAD ---
PORTABLE CHEST: HISTORY: CCU followup on ventilator. COMPARISON: 11/17/2018. FINDINGS/IMPRESSION: ET tube and NG Tube are in place. Bilateral infiltrates are again seen without significant change fr om yesterday. POS: NOE
[2018-11-18] MEDS: Vancomycin HCl 1.25 GM in Sodium Chloride 0.9% 250 ML 250 ML IVPB SCH ×2 (10:49→22:48)
--- NOTE | 2018-11-18 12:49 | PDOC.PALCO ---
Palliative Care Consult - Consult Details Requesting Physician: Dr Trejo Reason for Consult: assistance with communication prognosis/disease, complex decision-making Family Members Present: Patient , daughter, sons, saughter in law, and one granddaughter. - Pertinent HPI Patient with lung cancer 5 years post initial diagnosis with metastasis. Presented yesterday to the Er after episodes of syncope. Respiratory distress, CT of head revealed mass, edema with midline shift. Patient intubated and transferred to ICU. - Pertinent PMH Diagnosis of ling cancer 5 years ago - Social History Smoking Status: Former smoker Smoking: quit less than 1 year Alcohol Use: none Drug Use History: none Living Situation: - Medications MAR Reviewed: Yes - Allergies Allergies/Adverse Reactions: Allergies Allergy/AdvReac Type Severity Reaction Status Date / Time varenicline tartrate Allergy NIGHTMARES Verified 12/17/16 14:58 [From Chantix] - Subjective Intubated, sedated. Family at bedside. - Objective Vital Signs: Vital Signs - Most Recent Temp Pulse Resp BP Pulse Ox 97.8 F 131 H 32 H 111/82 100 11/18/18 04:00 11/18/18 10:24 11/18/18 06:00 11/17/18 22:33 11/17/18 20:00 - Physical Exam Constitutional: mild distress HEENT: moist MMs Respiratory: unlabored breathing Deviation from normal: Intubated, adventicious lung sounds more pronounced on expriation Cardiovascular: RRR Gastrointestinal: soft, non-tender Deviation from normal: sedated, furrows brow intermittantly Deviation from normal: cool lower extremities, feet slightly mottled - Problem List (1) Palliative care encounter Code(s): Z51.5 - ENCOUNTER FOR PALLIATIVE CARE Current Visit: Yes Status: Acute - Plan/Recommendations Plan: Extensive meeting with patient , children, D Dorita [address] cutter. Discussed disease trajectory and patient current status. Family expressed that they want to have patient be comfortable and wish to extubate her and provide comfort measures. Anil Quiroga and Dr Trejo notified. *Comfort measures ordered [90] minutes spent on this encounter with >50% of the time in counseling and coordination of care. Thank you for this very appropriate consult.
[2018-11-18] MEDS ORDERED: Lorazepam 2 MG/ML VIAL SLOW IVP PRN (12:56)
[2018-11-18] MEDS ORDERED: Morphine 10 MG/ML VIAL SLOW IVP PRN (12:56)
--- NOTE | 2018-11-18 13:18 | PDOC.PN ---
- Subjective Encounter Start Date: 11/18/18 Encounter Start Time: 09:45 Subjective: pt intubated - Objective Resuscitation Status - Order Detail: 11/17/18 12:14 Resuscitation Status Routine Resuscitation Status: DNAR: NO Resuscitation Discussed with: per pt's and family Vital Signs & Weight: Vital Signs (12 hours) Temp Pulse Resp 11/18/18 13:11 114 H 11/18/18 10:24 131 H 11/18/18 07:06 108 H 11/18/18 06:00 32 H 11/18/18 04:00 97.8 F 24 H 11/18/18 02:36 99 11/18/18 02:00 24 H Weight Weight 201 lb 15.095 oz Most Recent Monitor Data Heart Rate from ECG 128 NIBP 114/78 NIBP BP-Mean 90 Respiration from ECG 22 SpO2 89 I&O: 11/17/18 11/18/18 11/19/18 06:59 06:59 06:59 Intake Total 3128.8 Output Total 915 Balance 2213.8 Result Diagrams: 11/18/18 05:51 11/18/18 05:51 Additional Labs: Accuchecks 11/17/18 19:56 POC Glucose 247 H Phys Exam - Physical Examination Neck: no nodes, no JVD, supple, full ROM mild rhonchi all over Cardiovascular: RRR, no significant murmur, no rub, gallop, irregular Gastrointestinal: soft, non-tender, no distention, positive bowel sounds Dx/Plan - Plan * Acute respiratory failure * sepsis * new brain metastatic lesion * lung ca plan: pt on iv abx, she is a DNAR. per nursing family wants pt to be extubated. Her overall prognosis is poor. she had a midline shift and was on mannitol and steroids. Review of Systems - Review of Systems Other: unable to obtain - Medications/Allergies Allergies/Adverse Reactions: Allergies Allergy/AdvReac Type Severity Reaction Status Date / Time varenicline tartrate Allergy NIGHTMARES Verified 12/17/16 14:58 [From Chantix] Medications: Current Medications Acetaminophen (Tylenol) 650 mg PO Q4H PRN PRN Reason: Headache/Fever/Mild Pain (1-3) Albumin Human (Albumin 25%) 25 gm IVPB 1441 ANDREAS Stop: 11/18/18 16:00 Last Admin: 11/17/18 15:29 Dose: 25 gm Albuterol/Ipratropium (Duoneb) 3 ml NEB [id number] ANDREAS Last Admin: 11/18/18 10:23 Dose: 3 ml Dexamethasone (Decadron) 10 mg SLOW IVP Q6HR ANDREAS Last Admin: 11/18/18 12:18 Dose: 10 mg Famotidine (Pepcid) 20 mg SLOW IVP Q12HR ANDREAS Last Admin: 11/18/18 08:37 Dose: 20 mg Fentanyl Citrate 2,000 mcg/ (Sodium Chloride) 100 mls @ 0 mls/hr IV INF ANDREAS; Protocol Stop: 12/17/18 11:56 Last Admin: 11/18/18 12:44 Dose: 100 mls Levetiracetam 500 mg/ Device 100 mls @ 200 mls/hr IVPB 0200,1400 ANDREAS Last Admin: 11/18/18 02:44 Dose: 100 mls Potassium Chloride 40 meq/ (Sodium Chloride) 270 mls @ 135 mls/hr IVPB ASDIR PRN PRN Reason: FOR SERUM K+ 2.5 - 3.5 Potassium Chloride 40 meq/ (Device) 100 mls @ 50 mls/hr IVPB ASDIR PRN PRN Reason: FOR SERUM K+ 2.5 - 3.5 Magnesium Sulfate 1 gm/ Sodium (Chloride) 102 mls @ 102 mls/hr IV PRN PRN PRN Reason: MAG LEVEL 1.4 - 2.0 Magnesium Sulfate 2 gm/ Device 50 mls @ 50 mls/hr IVPB ASDIR PRN PRN Reason: MAGNESIUM < 1.4 Potassium Phosphate 9 mmol/ (Sodium Chloride) 103 mls @ 25.75 mls/hr IVPB ASDIR PRN PRN Reason: Phosphate 1.0-1.8 Potassium Phosphate 12 mmol/ (Sodium Chloride) 254 mls @ 63.5 mls/hr IV ASDIR PRN PRN Reason: Serum phosphate 0.5-0.9 Potassium Phosphate 15 mmol/ (Sodium Chloride) 255 mls @ 63.75 mls/hr IV ASDIR PRN PRN Reason: Serum Phos < 0.5 Cefepime HCl 2 gm/ Sodium (Chloride) 100 mls @ 200 mls/hr IVPB Q8HR [facility] Last Admin: 11/18/18 05:30 Dose: 100 mls Metronidazole 500 mg/ Device 100 mls @ 100 mls/hr IVPB Q8HR [facility] Last Admin: 11/18/18 05:31 Dose: 100 mls Sodium Chloride (Normal Saline 0.9%) 1,000 mls @ 150 mls/hr IV .Q6H40M [facility] Last Admin: 11/18/18 12:23 Dose: 1,000 mls Vancomycin HCl 1.25 gm/ Sodium (Chloride) 250 mls @ 166.667 mls/hr IVPB 1000, 2200 [facility] Last Admin: 11/18/18 10:49 Dose: 250 mls Lorazepam (Ativan) 2 mg SLOW IVP Q2H PRN PRN Reason: Anxiety/Agitation Magnesium Oxide (Magnesium Oxide) 400 mg PO BIDPRN PRN PRN Reason: FOR SERUM MAG 1.4 - 2.0 Magnesium Oxide (Magnesium Oxide) 800 mg PO PRN PRN PRN Reason: FOR SERUM MAG < 1.4 Miscellaneous Medication (Pharmacy To Dose) 1 each IVPB .VANC/ABX PRN PRN Reason: LABS Miscellaneous Medication (Phos-Nak) 1 pkt PO TIDPRN PRN PRN Reason: FOR PHOS LEVEL 1.0 - 1.8 Miscellaneous Medication (Phos-Nak) 2 pkt PO TIDPRN PRN PRN Reason: FOR PHOS LEVEL 0.5 - 1.0 Morphine Sulfate (Morphine) 10 mg SLOW IVP Q2H PRN PRN Reason: Congestion [facility] Electrolyte (Replacement Protocol) 0 each FS PRN PRN PRN Reason: FOR ELECTROLYTE REPLACEMENT Pantoprazole Sodium (Protonix) 40 mg IVP BID [facility] Last Admin: 11/18/18 08:38 Dose: 40 mg Potassium Chloride (K-Dur) 40 meq PO ASDIR PRN PRN Reason: FOR SERUM K+ 2.5 - 3.5 Potassium Chloride (Klor-Con) 40 meq PER TUBE ASDIR PRN PRN Reason: FOR SERUM K+ 2.5-3.5
[2018-11-18] MEDS: Albumin 25% 25 GM/100 ML BOT IVPB SCH (15:01)
[2018-11-18 21:54] VITALS: TEMP 98
--- NOTE | 2018-11-19 08:48 | DIS ---
DATE OF ADMISSION: 11/17/2018 DATE OF DISCHARGE: 11/18/2018 I had a lengthy discussion with the patient's family members at about 1 p.m., and several other children, they all wanted to have Ms. Perez extubated today and comfort measures were given. She was extubated and shortly thereafter she was pronounced at 3:07 p.m. Family present at the bedside. FINAL DIAGNOSES: 1. Metastatic adenocarcinoma. 2. Large right frontal parietal metastasis. 3. Respiratory failure. 4. Chronic obstructive pulmonary disease, aspiration pneumonia. An autopsy was performed. Body was released to the home. Job ID: [id number]
--- NOTE | 2018-11-20 12:53 | EKG ---
Test Reason : Blood Pressure : / mmHG Vent. Rate : 171 BPM Atrial Rate : 171 BPM P-R Int : 000 ms QRS Dur : 096 ms QT Int : 288 ms P-R-T Axes : 000 -30 086 degrees QTc Int : 485 ms Sinus tachycardia Left axis deviation Cannot rule out Anterior infarct , age undetermined T wave abnormality, consider lateral ischemia Abnormal ECG Confirmed by SLIME BARTLETT MD ([id number]), assignment editor FRANCOISE DEWITT ([id number]) on 11/20/2018 12:53:18 PM Referred By: Confirmed By:SLIME BARTLETT MD
== END 2018-11-18 15:07 | disposition expired | DRG 208 ==
LOC: ERS 08:59 → CCU 14:58
PROVIDERS: ADMIT Internal Medicine; ATTEND Internal Medicine
PROC: 5A1935Z Respiratory Ventilation, Less than 24 Consecutive Hours (ICD-10-PCS; principal; 2018-11-17)
PROC: 0BH17EZ Insertion of Endotracheal Airway into Trachea, Via Natural or Artificial Opening (ICD-10-PCS; 2018-11-17)
DX: J96.00 Acute respiratory failure, unspecified whether with hypoxia or hypercapnia (principal); A41.9 Sepsis, unspecified organism; J69.0 Pneumonitis due to inhalation of food and vomit; Z66 Do not resuscitate; Z51.5 Encounter for palliative care; G93.6 Cerebral edema; R65.20 Severe sepsis without septic shock; C34.90 Malignant neoplasm of unspecified part of unspecified bronchus or lung; C79.31 Secondary malignant neoplasm of brain; M19.90 Unspecified osteoarthritis, unspecified site; Z90.49 Acquired absence of other specified parts of digestive tract; Z90.710 Acquired absence of both cervix and uterus; Z88.8 Allergy status to other drugs, medicaments and biological substances; Z79.82 Long term (current) use of aspirin; Z87.891 Personal history of nicotine dependence; Z92.21 Personal history of antineoplastic chemotherapy; Z92.3 Personal history of irradiation
CPT/HCPCS: 36415; 36416; 70450; 71045; 71260; 74177; 80048; 80053; 80306; 80307; 81003; 81015; 82550; 82553; 82805; 83605; 83690; 83735; 83880; 84100; 84484; 85025; 87040; 87086; 93005; 94002; 94003; 94640; C9113; J0692; J1100; J1720; J1953; J2150; J2250; J2270; J2543; J3010; J3370; J3490; J7050; J7620; P9047; Q9966; S0028